=== PATIENT | female | born 1940 | race Caucasian/White ===

== ENCOUNTER 2024-01-05 23:00 | Inpatient (IN) | payer MEDICARE, OTHER, SELFPAY ==
[2024-01-05 17:23] VITALS: BP 99/52
[2024-01-05 17:44] LABS: % Basophils 0.5 % (0-2); % Eosinophils 1.6 % (0-6); % Immature Granulocytes 0.4 % (0-0.5); % Lymphocytes 6.5 % (20.5-51.1); Absolute Eosinophils 0.1 10^3/uL (0-0.7); Absolute Lymphocytes 0.5 10^3/uL (1.2-3.4); Absolute Monocytes 0.6 10^3/uL (0.1-0.6); Absolute Neutrophils 6.2 10^3/uL (1.4-6.5); Hematocrit 28.5 % (37.0-47.0); Hemoglobin 9.3 g/dL (12.0-16.0); Mean Corp Hgb Conc. 32.6 g/dL (33.0-37.0); Mean Corpuscular Hgb 28.4 pg (27.0-31.0); Mean Corpuscular Volume 87.2 fL (81.0-99.0); Mean Platelet Volume 10.5 fL (7.4-10.4); Nucleated Red Blood Cells % 0 %; Platelet Count 220 10^3/uL (130-400); Red Blood Cell Count 3.27 10^6/uL (4.20-5.40); Red Cell Dist. Width 15.1 % (11.5-14.5); White Blood Cell Count 7.5 10^3/uL (4.8-10.8)
[2024-01-05 17:57] LABS: ALT (SGPT) 10 U/L (0-35); AST (SGOT) 28 U/L (14-36); Alkaline Phosphatase 53 U/L (38-126); Blood Urea Nitrogen 36 mg/dl (7-17); Carbon Dioxide 22 mmol/L (22-30); Glucose 127 mg/dl (70-99); Lipase 235 U/L (23-300); Total Bilirubin 0.4 mg/dl (0.2-1.3); Total Protein 6.8 g/dl (6.3-8.2); eGFR 40.55
[2024-01-05 18:11] LABS: Chloride 97 mmol/L (98-107); Potassium 4.5 mmol/L (3.5-5.1); Sodium 129 mmol/L (135-145)
[2024-01-05 19:42] VITALS: BP 170/59
[2024-01-05 20:00] VITALS: BP 153/66
[2024-01-05 21:00] VITALS: BP 126/61
--- NOTE | 2024-01-05 21:24 | ED.GENMED ---
History of Present Illness
General
Chief Complaint: Abdominal Symptoms
Source: patient and family (son)
Time Seen by Provider: 01/05/24 19:44
Travel History
Have you had any contact with someone who has COVID-19?: No
Do you have any symptoms of coronavirus? Fever > 100 degrees, chills, cough, shortness of breath, sore throat, loss of taste or smell, muscle aches, or headache?: No
History of Present Illness
History of Present Illness:
83-year-old female presents to the emergency room complaining of increased belching, vomiting her lunch today. Patient has a significant history of esophageal food impaction due to hiatal hernia and paraesophageal hernia. Patient has had 2
hospitalizations for this requiring extensive clearing of the esophagus. After her last hospitalization the patient has been following a pur�ed diet. Family states she follows the pur�ed diet. However the symptoms she is experiencing today are
identical to what she is experienced when she has developed food impactions in the past. She is not regurgitating secretions. She has tolerated liquids.
Past History
Past History
ED Past Medical History: Cancer, HTN, Hypercholesterolemia, Valvular disease (Aortic valve replacement due to aortic stenosis), Hypothyroidism and Other (Paraesophageal hernia)
ED Past Surgical History: Cardiac (CABG), Gynecological (Hysterectomy 2002) and Orthopedic (Lumbar laminectomy, thoracic surgery)
Patient has exhibited threatening behavior?: No
PSI?: No
Social History
Tobacco: Non-smoker
Alcohol: None
Drug: None
Personal:
Living: with family
Employment: Retired
Family History
Family History: Other (Noncontributory)
Phy Exam
Physical Exam
Physical Exam:
General: Awake, Alert, Oriented X3. No acute distress.
Vitals: unremarkable
Head: Atraumatic
Eyes: Pupils equal, EOMI
Throat: Airway intact, no exudates
Neck: Trachea midline
Lungs: Clear and equal b/l
Heart: Regular rate, no murmurs
Abd: Soft, Nontender, No pulsatile mass
Neuro: Nonfocal
Skin: Warm, dry, no rash
Extremities: pulses equal b/l, no edema
Course
Orders/Labs/Results
Orders:
Orders
01/05/24 17:29
EKG [Electrocardiogram (*1)] Urgent
Reason for Study: Abdominal Pain
EKG- Treatment ONCE
01/05/24 17:35
CBC/With Diff [Complete Blood Count/With Diff] Urgent
CMP [Comprehensive Metabolic Panel] Urgent
Lipase Urgent
01/05/24 22:10
Admit/Transfer Patient As Directed
Co-Sign Provider:
Level of Care: Inpatient admission
Assign to:: Medical/Surgical
Physician / Group: Ciro
Diagnosis: Odynophagia, Hyponatremia
Reason for Hospitalization: Odynophagia, Hyponatremia
Expected length of stay greater than two midnights?: Yes
ELOS- Estimated Length of Stay in days: 3
I certify the patient meets the requirements for IP care: Yes
01/05/24 22:22
Code Status As Directed
Resuscitation Status: Do not resuscitate
Reached after discussion with pt or family/Healthcare POA: Yes
01/05/24 22:24
DNR Bracelet Application ONCE
01/05/24 22:26
Urine Osmolality Random [Osmolality, Random Urine] Urgent
Date Specimen was Collected: 01/05/24
Time Specimen was Collected: 23:47
Urine Sodium Urgent
Date Specimen was Collected: 01/05/24
Time Specimen was Collected: 23:47
Abnormal Lab Results
01/05/24
17:35
RBC 3.27 L 10^6/uL
(4.20-5.40)
Hgb 9.3 L g/dL
(12.0-16.0)
Hct 28.5 L %
(37.0-47.0)
MCHC 32.6 L g/dL
(33.0-37.0)
RDW 15.1 H %
(11.5-14.5)
MPV 10.5 H fL
(7.4-10.4)
Absolute Lymphs (auto) 0.5 L 10^3/uL
(1.2-3.4)
Neutrophils % 83.0 H %
(42.2-75.2)
Lymphocytes % 6.5 L %
(20.5-51.1)
Sodium 129 L mmol/L
(135-145)
Chloride 97 L mmol/L
(98-107)
BUN 36 H mg/dl
(7-17)
Creatinine 1.3 H mg/dL
(0.6-1.0)
Glucose 127 H mg/dl
(70-99)
01/05/24 17:35
01/05/24 17:35
Vital Signs
Initial and Last Documented VS:
Initial Vital Signs
Temp Pulse Resp BP Pulse Ox
99.0 F 57 16 99/52 98
01/05/24 17:23 01/05/24 17:23 01/05/24 17:23 01/05/24 17:23 01/05/24 17:23
Last Documented Vital Signs
Temp Pulse Resp BP Pulse Ox
99.0 F 55 12 127/56 94
01/05/24 17:23 01/05/24 23:45 01/05/24 23:45 01/05/24 23:00 01/05/24 23:45
MDM/Problems Addressed
Differential Diagnosis Includes:
Partial esophageal food impaction, GERD, gastritis
MDM/Problems Addressed:
In reviewing the notes of the patient's previous 2 hospitalizations she has had very extensive impactions despite at times tolerating some liquids and tolerating her secretions. I did discuss the patient's presentation with GI on-call. They
recommend hospitalization and they will evaluate the patient in the morning.
*Pulse Oximetry
Patient hypoxic: no
*EKG
Interpreted by ED Provider?: Yes
Heart Rate: 59
Rate: bradycardiac
Rhythm: sinus
QRS Pattern: left vent hypertrophy
Ischemia: no ischemia
*Addiction Nurse Interpretation
Rate: bradycardiac
Rhythm: sinus
*Critical Care Note
Total Time (30-74mins, 75-104mins- exclusive of procedures): Not Applicable
Data Reviewed
Review of Other/Old Records Reveals: Operative Reports (Endoscopy reports) and Discharge Summary
Patient Management
Social determinants of health affecting care: Living situation
ED Attending Note
-
Portions of this chart may have been created with voice recognition software.� Occasional wrong word or��sound alike� substitutions may have occurred due to the inherent limitations of voice recognition software.
Discharge Plan
Departure
Patient Disposition: Admit
Date of Disposition: 01/05/24
Time of Disposition: 21:24
Admit to: Med/Surg
Presentation/result/management discussed w/ accepting MD/DO: Hospitalist
Discharge Problem:
Dysphagia
Interventions
Interventions:
*Risk Screen - Suicide Last Done: 01/05/24 17:23
*General Assessment Last Done: 01/05/24 17:23
*Neglect/Abuse Screening Last Done: 01/05/24 21:55
ED- Fall Risk Assessment Last Done: 01/05/24 21:55
*ED COVID-19 Vaccine History Last Done: 01/05/24 17:23
RV-Ooihsz-Aqcqjjlzxg Assessment Last Done: 01/05/24 21:55
[2024-01-05 21:55] VITALS: BMI 22.7
[2024-01-05 22:00] VITALS: BP 160/63
--- NOTE | 2024-01-05 22:26 | HPS.HSE ---
Family Physician
-
Family Physician: Zach Goddard
Chief Complaint
-
Pain with swallowing
History of Present Illness
Patient is an 83y F with PMH significant for paraesophageal hernia, odynophagia, esophageal candidiasis, ASCVD and chronic pain syndrome who presents to ED complaining of pain with swallowing and N/V. Patient has prior history of pain with
swallowing, dysphagia and recurrent food impactions. She was last admitted here for this issue in 05/2023. Patient is maintained on a pureed diet and has generally been doing well. About two weeks ago, she began to have pain with swallowing food
or liquids. She describes this as 'angina' or a 'tightness' in the chest that resolves after several minutes, but then recurs with any further eating / drinking.
Patient did not alert anyone to her symptoms until today when she had an episode of N/V or regurgitation after lunch today.
Patient denies any abdominal pain, fevers / chills, black or bloody stools.
She complains of overactive bladder and - as a result - will avoid drinking fluids at times to minimize need to urinate.
Patient was started on new medication (Gemtesa) about 10 days ago - but swallow issues had already started prior to this change.
Patient had previously considered paraesophageal hernia repair as means to improve swallow function / prevent future episodes of dysphagia / food impaction; however, she ultimately decided against this.
Son notes that she is functionally in much better shape now than she was one year ago and she may reconsider.
Medical History
Past Medical History
Past Medical History: Reports Other
Additional Past Medical History:
ASCVD
Hypertension
Dyslipidemia
Chronic HFpEF
Severe aortic stenosis
CKD stage IV
Chronic Dysphagia / Odynophagia
Paraesophageal Hernia
Anemia of chronic disease
Chronic pain syndrome secondary to spinal stenosis with morphine pump
Recurrent urinary tract infection
GERD
? Ulcerative colitis
OAB
Hypothyroidism
Depression
Past Surgical History: Reports Other
Additional Past Surgical History:
CABG x 3
Bioprosthetic AVR
Morphine pump
RAMANA
Lumbar laminectomy
Thoracic spine surgery
Social History
Tobacco: Non-smoker
Alcohol: None
Drug: None
Living: Assisted
Family History
Family History: Not pertinent
Allergies / Home Medications
Allergies reflects when Allergies were last updated in [facility].
Home Medications with original date entered in [facility]
Allergy/Medication List:
Allergies
Allergy/AdvReac Type Severity Reaction Status Date / Time
levofloxacin Allergy swelling Verified 01/05/24 17:23
and
itching at
site
Metronidazole HCl Allergy Swelling, Verified 01/05/24 17:23
[From Flagyl] itching
oxycodone Allergy Confusion Verified 01/05/24 17:23
Home Medications
ezetimibe 10 mg tablet 10 mg PO HS High cholesterol 03/16/09
jxfhimtbpgu-sfegxgtdm-rit C-Mn 750 mg-600 mg-55 mg-5 mg tablet 1 tab PO BID Supplement 03/16/09
sertraline 50 mg tablet 50 mg PO HS Mental Health/Anxiety 03/16/09
omega 6-ovl-gyi-fish oil 250 mg-500 mg-1,000 mg capsule 1 cap PO DAILY High cholesterol 09/21/13
ascorbic acid (vitamin C) 500 mg tablet (Vitamin C) 500 mg PO DAILY Supplement 05/29/16
aspirin 81 mg tablet,delayed release 81 mg PO DAILY Blood clot prevention/tx 05/29/16
Morphine Pump 0 mg INJ Q1H Pain 10/15/18
nitroglycerin 0.4 mg sublingual tablet 0.4 mg sublingual [id number] PRN chest pain 10/15/18
rosuvastatin 5 mg tablet 5 mg PO HS High cholesterol 10/15/18
B-complex with vitamin C 1 cap PO DAILY Supplement 10/01/20
isosorbide mononitrate 60 mg tablet,extended release 24 hr 60 mg PO DAILY ANGINA 10/01/20
vit C 250 mg-vit E 90 mg-zinc 40 mg-copper 1 so-lekqvd-bhgpsp capsule (PreserVision AREDS-2) 1 cap PO BID Eye condition 10/01/20
mesalamine 1.2 gram tablet,delayed release (Lialda) 2.4 g PO DAILY Gastrointestinal issue 11/19/20
alendronate 70 mg tablet 70 mg PO SA oSTEOPEROSIS 09/22/22
pantoprazole 40 mg tablet,delayed release 40 mg PO DAILY Gastrointestinal Issue 04/11/23
acetaminophen 325 mg tablet 650 mg PO Q6HPRN PRN mild pain/fever 06/01/23
carvedilol 6.25 mg tablet 3.125 mg PO BID #0 tabs 06/05/23
polyethylene glycol 3350 17 gram oral powder packet (HealthyLax) 17 g PO DAILY #0 ea 06/05/23
tamsulosin 0.4 mg capsule 0.4 mg PO DAILY #0 caps 06/05/23
L. crispatus, gasseri, jensenii, rhamnosus 5 billion cell capsule (AZO Complete Feminine Balance) 2 cap PO DAILY 01/05/24
amlodipine 10 mg tablet (Norvasc) 10 mg PO DAILY 01/05/24
bisacodyl 10 mg rectal suppository (Dulcolax (bisacodyl)) 10 mg NC Q8HPRN PRN if no bm aftr mom 01/05/24
calcium carbonate 200 mg calcium (500 mg) chewable tablet (Tums) 200 mg PO Q6HPRN PRN gerd 01/05/24
camphor-menthol 0.2 %-3.5 % topical gel 1 applic topical TID shoulder 01/05/24
carboxymethylcellulose 0.5 %-glycerin 0.9 % eye drops (Refresh Optive) 1 drp BOTH EYES BID 01/05/24
cholecalciferol (vitamin D3) 25 mcg (1,000 unit) tablet (Vitamin D3) 25 mcg PO DAILY 01/05/24
darifenacin 15 mg tablet,extended release 24 hr 15 mg PO DAILY 01/05/24
famotidine 20 mg tablet (Pepcid) 10 mg PO DAILY 01/05/24
fenofibrate 54 mg tablet 54 mg PO DAILY 01/05/24
furosemide 20 mg tablet (Lasix) 20 mg PO DAILY 01/05/24
levothyroxine 75 mcg tablet (Synthroid) 75 mcg PO DAILY 01/05/24
magnesium hydroxide 400 mg/5 mL oral suspension (Milk of Magnesia) 2,400 mg PO [id number] PRN constipation 01/05/24
melatonin 3 mg tablet 6 mg PO HSPRN PRN sleep 01/05/24
sennosides 8.6 mg tablet (senna) 17.2 mg PO DAILY 01/05/24
vibegron 75 mg tablet (Gemtesa) 75 mg PO DAILY 01/05/24
Review of Systems
-
History Source: Patient
A 12 point ROS was completed and negative except as noted: Yes
Constitutional: Reports Fatigue; Denies Fever or Chills
EENT: Denies Sore Throat
Respiratory: Denies Cough or Trouble Breathing
Cardiac: Reports Chest Pain; Denies Palpitations
Abdomen/GI: Reports Nausea, Vomiting and Anorexia; Denies Abdominal Pain, Diarrhea or Constipated
: Reports Frequency and Urgency; Denies Dysuria or Flank Pain
Neurological: Denies Dizzy or Headache
Psych: Denies Depression or Anxiety
Physical Exam
Vital Signs
Vital Signs
Temp Pulse Resp BP Pulse Ox
99.0 F 52 11 153/66 97
01/05/24 17:23 01/05/24 20:30 01/05/24 20:30 01/05/24 20:00 01/05/24 20:30
Physical Exam
General: Other (Chronically ill-appearing 83y F.)
HEENT: PERRLA and Other (Dry MM. )
Respiratory: Clear; No Wheezes, Rales or Rhonchi
Cardiac: S1/S2, Regular Rhythm and Murmur (III/ ENE)
GI: Other (Softly distended. Pos BS. No focal tenderness, rebound or guarding. Morphine pump in the RLQ.)
Musculoskeletal: No Clubbing, No Cyanosis and Other (1+ pitting edema b/l ankles.)
Neuro: AO x 3
Laboratory Results
-
01/05/24 17:35
01/05/24 17:35
Laboratory Results
Total Bilirubin 0.4 mg/dl (0.2-1.3) 01/05/24 17:35
AST 28 U/L (14-36) 01/05/24 17:35
ALT 10 U/L (0-35) 01/05/24 17:35
Alkaline Phosphatase 53 U/L (38-126) 01/05/24 17:35
Lipase 235 U/L (23-300) 01/05/24 17:35
Impression/Plan
-
A/P: Patient is an 83y F with PMH significant for paraesophageal hernia, chronic pain syndrome, ASCVD and CKD who presents to ED complaining of pain with swallowing x 2 weeks and N/V x 1 today.
Odynophagia
Paraesophageal Hernia
GERD
N/V v Regurgitation
- Admit for further evaluation and treatment.
- NPO for now. Patient takes pureed diet at baseline.
- IV PPI.
- GI evaluation in AM / possible EGD for further evaluation.
- Patient previously discussed possibility of paraesophageal hernia repair - may wish to reconsider.
Hyponatremia
- Na = 129 today. Patient appears slightly overloaded by exam with ankle edema - but history of pain with swallowing and OAB leading to significant decrease in fluid intake would argue against volume overload.
- Hold Lasix for now.
- IVF overnight.
- Check urinary studies.
- Follow for changes in Na level and consider Nephrology evaluation if no improvement.
ASCVD
- Stable. Current 'angina' likely GI in origin.
- EKG in unremarkable.
- Continue ASA, carvedilol, etc.
- Follow for any changes.
Aortic Stenosis s/p Bioprosthetic AVR
Chronic HFpEF
- Stable. Holding Lasix as noted above.
- Follow I/Os, daily weights and dose diuretic as needed until PO intake is restored.
Chronic Pain Syndrome
Chronic Opioid Dependence
- Patient is maintained on morphine pump which is currently active.
- Continue pump at home settings.
- PT / OT evaluations for mobility.
- Follow for any changes.
Hypothyroidism
- Continue current T4 replacement.
DVT Prophylaxis: Subcut Heparin
Code Status: DNR
[2024-01-05 23:00] VITALS: BP 127/56
[2024-01-06] VITALS (13 sets, daily range): BP systolic 96–163; BP diastolic 48–62; PULSE 57; O2SAT 97; BMI 20.3; BMI 19.3
--- NOTE | 2024-01-06 00:53 | EDRN ---
Patient sleeping, sent lab tests added, patient asking for another blanket, provided and turned down lights, call jiang in reach.
[2024-01-06] MEDS: NSS 1000 IV ×2 (00:56→13:07)
[2024-01-06 01:09] LABS: Osmolality Urine 293 mOsm/kg (300-900)
[2024-01-06 01:54] LABS: Urine Sodium 25 mmol/L (30-90)
[2024-01-06 02:34] LABS: TSH Reflex To Free T4 2.66 uIU/ml (0.47-4.68)
--- NOTE | 2024-01-06 04:41 | EDRN ---
Patient sleeping at this time, VSS
[2024-01-06 06:14] LABS: Hematocrit 25.6 % (37.0-47.0); Hemoglobin 8.6 g/dL (12.0-16.0); Mean Corp Hgb Conc. 33.6 g/dL (33.0-37.0); Mean Corpuscular Hgb 28.6 pg (27.0-31.0); Mean Platelet Volume 10.7 fL (7.4-10.4); Platelet Count 213 10^3/uL (130-400); Red Blood Cell Count 3.01 10^6/uL (4.20-5.40); Red Cell Dist. Width 14.9 % (11.5-14.5)
[2024-01-06 06:34] LABS: Blood Urea Nitrogen 31 mg/dl (7-17); Carbon Dioxide 25 mmol/L (22-30); Chloride 105 mmol/L (98-107); Estimated Creatinine Clearance 33 ml/min; Glucose 69 mg/dl (70-99); Potassium 4.2 mmol/L (3.5-5.1); Sodium 133 mmol/L (135-145); eGFR 49.55
--- NOTE | 2024-01-06 07:10 | EDRN ---
Report to Alla RN while going over morning blood work, blood glucose was 69, melissa texted hospitalist for further orders
--- NOTE | 2024-01-06 07:48 | CON.GI ---
Addendum entered and electronically signed by Jes Bone MD 01/06/24 11:41:
I saw and examined the patient.
The RIVET HOLE PUNCHER's note was reviewed and I agree with the note.
Comment: This is a 83-year-old female who has a history of medium to large paraesophageal hiatal hernia with history of food impactions in the past most recently had endoscopy in April and May 2023 with large amount of retained food removed from the
esophagus and subsequently was referred to surgery to consider repair of her hiatal hernia but patient had opted to hold off on it and actually had been doing pretty well on pur�ed diet that was recommended by speech she also has a history of
tortuous and presbyesophagus. She has been having recurrent symptoms of dysphagia with regurgitation for the past 1 to 2 weeks and presented to the emergency room yesterday but currently is able to swallow secretions and has not had any nausea or
vomiting.
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 She has been
having recently increasing symptoms of dysphagia with the pur�ed diet also, will schedule upper endoscopy to rule out recurrent food bolus impaction. Continue pantoprazole and Pepcid if has repeated episodes on pureed diet may need to revisit
repair of her hiatal hernia she has seen general surgery and she had opted to hold off on surgery in the past. I encouraged her to eat small frequent meals and also follow reflux precautions
Original Note:
Consultation
-
Date/Time Consultation Requested: 01/06/24 @00:39
Date/Time Consultation Performed: 01/06/24 @ 08:15
Requesting Provider: Dr. Tanner
Performing Provider: NOLVIA Christiansen; Dr. Jes Bone
Reason for Consultation: dysphagia
Medical History
Chief Complaint / HPI
Chief Complaint: pain with swallowing
History of Present Illness:
The pt is an 83 yo female with a PMH significant for hypertension, hyperlipidemia, CAD status post CABG on aspirin, aortic stenosis status post bovine aortic valve replacement in 2011 and TAVR in November 2022, chronic pain syndrome with morphine
pump, hypothyroidism, ulcerative colitis on Lialda, paraesophageal hernia, Esophageal candidiasis, dysphagia, history of food impaction, who presented to the emergency room with complaints of painful swallowing. We are being asked to evaluate for
the presenting symptoms. Upon review of prior records, the patient was seen last year in April and May with complaints of dysphagia. She was noted to have a food impaction in April with inability to get liquids down. She underwent an endoscopy
which showed a large amount of food seen in the upper third of the esophagus middle third, and lower third of the esophagus and food was removed with multiple passes. She also underwent an esophagram during that admission which showed a large
paraesophageal hernia and was advised on follow-up with surgery, which was ultimately deferred at that time. She presented again in May with recurrent dysphagia, vomiting, and regurgitation. It was noted her symptoms had started after having
COVID and a course of Paxlovid. She ultimately underwent an endoscopy which showed a food throughout the esophagus and multiple plaques in the upper third of the esophagus with a large paraesophageal hernia. The endoscopy did take a total of 2
hours in time. She was treated for esophageal candidiasis at that time. She was again advised to follow-up with general surgery for discussion on her paraesophageal hernia and surgical options. She was discharged on a dysphagia 1/pur�ed diet. Today
she reports she has been having ongoing odynophagia for the past 1-1/2 to 2 weeks. She notes that she has been on a pur�ed diet and thin liquids as directed last year and has not had any difficulty with swallowing, but notes that she has had
progressively more painful swallowing. She notes that she was not having any overt nausea or vomiting but did have to regurgitate food yesterday after her lunch. This is similar to when she had prior food impactions in the past. She denies any
intolerance of her secretions and is swallowing normally. She denies any abdominal pain, chest pain, shortness of breath, fevers, or chills. She reports she is moving her bowels every few days which is baseline. She denies any diarrhea, melena,
or hematochezia. She denies any hematemesis. She does take aspirin, and for her son she has been off Plavix since September. Per her med list she is on daily PPI. She denies any recent antibiotics, steroid use, or NSAID use. Prior EGD and
colonoscopy as noted below. Routine labs on admission showed WBC 7.5, hgb 9.3, Plt 220,000, Na 129, K 4.5, BUN 36, Cr 1.3, normal LFT's/lipase. She was placed on PPI, made NPO, and admitted for further evaluation by GI. She is currently resting in
the stretcher no acute distress.
Past Medical History
Past Medical History: CAD (Status post CABG), CHF, GERD, HTN, Hypercholesterolemia, Hypothyroidism, Valvular Disease (Aortic stenosis status post bovine aortic valve replacement in 2011 and TAVR are in November 2022), Psychiatric (Anxiety/depression)
and Other (Chronic pain syndrome with morphine pump, ulcerative colitis on Lialda, osteoporosis, large paraesophageal hernia, history of esophageal candidiasis, CKD, chronic dysphagia/odynophagia, chronic anemia)
Past Surgical History: Cardiac (CABGx3 vessels, bioprosthetic AVR, TAVR), Gynecological (Hysterectomy) and Orthopedic (Lumbar laminectomy, thoracic spine surgery)
Social History
Tobacco: Non-Smoker
Alcohol: None
Drug: None
Living: Mcfp
Family History
Family History: Reviewed & Not Pertinent
Allergies / Home Medications
Allergy/AdvReac Type Severity Reaction Status Date / Time
levofloxacin Allergy swelling Verified 01/05/24 17:23
and
itching at
site
Metronidazole HCl Allergy Swelling, Verified 01/05/24 17:23
[From Flagyl] itching
oxycodone Allergy Confusion Verified 01/05/24 17:23
Medication Instructions Recorded
ezetimibe 10 mg tablet 10 mg PO HS High cholesterol 03/16/09
qygprtaekwi-[id number]-abu C-Mn 750 1 tab PO BID Supplement 03/16/09
mg-600 mg-55 mg-5 mg tablet
sertraline 50 mg tablet 50 mg PO HS Mental Health/Anxiety 03/16/09
omega 8-yre-zhn-fish oil 250 1 cap PO DAILY High cholesterol 09/21/13
mg-500 mg-1,000 mg capsule
ascorbic acid (vitamin C) 500 mg 500 mg PO DAILY Supplement 05/29/16
tablet (Vitamin C)
aspirin 81 mg tablet,delayed 81 mg PO DAILY Blood clot 05/29/16
release prevention/tx
Morphine Pump 0 mg INJ Q1H Pain 10/15/18
nitroglycerin 0.4 mg sublingual 0.4 mg sublingual [id number] PRN 10/15/18
tablet chest pain
rosuvastatin 5 mg tablet 5 mg PO HS High cholesterol 10/15/18
B-complex with vitamin C 1 cap PO DAILY Supplement 10/01/20
isosorbide mononitrate 60 mg 60 mg PO DAILY ANGINA 10/01/20
tablet,extended release 24 hr
vit C 250 mg-vit E 90 mg-zinc 40 1 cap PO BID Eye condition 10/01/20
mg-copper 1 [id number]
capsule (PreserVision AREDS-2)
mesalamine 1.2 gram tablet,delayed 2.4 g PO DAILY Gastrointestinal 11/19/20
release (Lialda) issue
alendronate 70 mg tablet 70 mg PO SA oSTEOPEROSIS 09/22/22
pantoprazole 40 mg tablet,delayed 40 mg PO DAILY Gastrointestinal 04/11/23
release Issue
acetaminophen 325 mg tablet 650 mg PO Q6HPRN PRN mild 06/01/23
pain/fever
carvedilol 6.25 mg tablet 3.125 mg PO BID #0 tabs 06/05/23
polyethylene glycol 3350 17 gram 17 g PO DAILY #0 ea 06/05/23
oral powder packet (HealthyLax)
tamsulosin 0.4 mg capsule 0.4 mg PO DAILY #0 caps 06/05/23
L. crispatus, gasseri, jensenii, 2 cap PO DAILY 01/05/24
rhamnosus 5 billion cell capsule
(AZO Complete Feminine Balance)
amlodipine 10 mg tablet (Norvasc) 10 mg PO DAILY 01/05/24
bisacodyl 10 mg rectal suppository 10 mg MO Q8HPRN PRN if no bm aftr 01/05/24
(Dulcolax (bisacodyl)) mom
calcium carbonate 200 mg calcium 200 mg PO Q6HPRN PRN gerd 01/05/24
(500 mg) chewable tablet (Tums)
camphor-menthol 0.2 %-3.5 % 1 applic topical TID shoulder 01/05/24
topical gel
carboxymethylcellulose 0.5 1 drp BOTH EYES BID 01/05/24
%-glycerin 0.9 % eye drops
(Refresh Optive)
cholecalciferol (vitamin D3) 25 25 mcg PO DAILY 01/05/24
mcg (1,000 unit) tablet (Vitamin
D3)
darifenacin 15 mg tablet,extended 15 mg PO DAILY 01/05/24
release 24 hr
famotidine 20 mg tablet (Pepcid) 10 mg PO DAILY 01/05/24
fenofibrate 54 mg tablet 54 mg PO DAILY 01/05/24
furosemide 20 mg tablet (Lasix) 20 mg PO DAILY 01/05/24
levothyroxine 75 mcg tablet 75 mcg PO DAILY 01/05/24
(Synthroid)
magnesium hydroxide 400 mg/5 mL 2,400 mg PO [id number] PRN 01/05/24
oral suspension (Milk of Magnesia) constipation
melatonin 3 mg tablet 6 mg PO HSPRN PRN sleep 01/05/24
sennosides 8.6 mg tablet (senna) 17.2 mg PO DAILY 01/05/24
vibegron 75 mg tablet (Gemtesa) 75 mg PO DAILY 01/05/24
Review of Systems
-
History Source: Patient
Constitutional: Reports No Symptoms
EENT: Reports No Symptoms
Respiratory: Reports No Symptoms
Cardiac: Reports No Symptoms
Abdomen/GI: Reports Vomiting, Constipated and Other (Odynophagia)
: Reports No Symptoms
Musculoskeletal: Reports No Symptoms
Skin: Reports No Symptoms
Neurological: Reports No Symptoms
Vital Signs
Temp Pulse Resp BP Pulse Ox
99.0 F 52 12 147/51 98
01/05/24 17:23 01/06/24 06:45 01/06/24 06:45 01/06/24 06:00 01/06/24 06:45
Physical Exam
Exam
General: No Apparent Distress, Comfortable and Other (Elderly appearing female in no acute distress)
HEENT: Normocephalic, Anicteric and Atraumatic
Respiratory: Clear
Cardiac: S1/S2 and Regular Rhythm
Breast: Deferred by me
GI: Soft, Non Tender, Non Distended, Normal Bowel Sounds and Other (Morphine pump device palpated to the right upper quadrant)
Rectal: Deferred by Provider
Musculoskeletal: Other (Trace lower extremity edema)
Skin: Warm and Dry
Neuro: Awake, Alert and Oriented
Psych: Calm
Results
WBC 5.0 10^3/uL (4.8-10.8) 01/06/24 05:48
Hgb 8.6 g/dL (12.0-16.0) L 01/06/24 05:48
Hct 25.6 % (37.0-47.0) L 01/06/24 05:48
MCV 85.0 fL (81.0-99.0) 01/06/24 05:48
Plt Count 213 10^3/uL (130-400) 01/06/24 05:48
Absolute Neuts (auto) 6.2 10^3/uL (1.4-6.5) 01/05/24 17:35
Sodium 133 mmol/L (135-145) L 01/06/24 05:48
Potassium 4.2 mmol/L (3.5-5.1) 01/06/24 05:48
Chloride 105 mmol/L (98-107) 01/06/24 05:48
Carbon Dioxide 25 mmol/L (22-30) 01/06/24 05:48
BUN 31 mg/dl (7-17) H 01/06/24 05:48
Creatinine 1.1 mg/dL (0.6-1.0) H 01/06/24 05:48
Calcium 9.0 mg/dl (8.4-10.2) 01/06/24 05:48
Total Bilirubin 0.4 mg/dl (0.2-1.3) 01/05/24 17:35
AST 28 U/L (14-36) 01/05/24 17:35
ALT 10 U/L (0-35) 01/05/24 17:35
Alkaline Phosphatase 53 U/L (38-126) 01/05/24 17:35
Lipase 235 U/L (23-300) 01/05/24 17:35
Prior GI Procedures:
EGD: 06/02/23 Dr. Brannon: Food in the esophagus. Removal was successful. Multiple plaques in the upper third of the esophagus. Cells for cytology obtained. Large paraesophageal hernia. Normal examined duodenum.
04/10/2023 Dr. Bone: - large amount of Food column in the upper third of the esophagus, in the middle third of the esophagus and in the lower third of the esophagus. food removed with multiple passes with chacko net and alligator forceps.
Medium-sized paraesophageal hiatal hernia. Normal examined duodenum. No specimens collected.
02/24/2019 Dr. Bergeron: Tortuous esophagus. Medium-sized paraesophageal hernia. Non-bleeding gastric ulcer with no stigmata of bleeding. Biopsied. A single lesion diagnostic of aberrant pancreas was found in the stomach. Biopsied. Gastritis. Biopsied.
Normal examined duodenum. Biopsied. Path showing chronic gastritis, +intestinal metaplasia of the stomach, negative for celiac, H pylori.
01/06/2019 Dr. Walp: �Tortuous esophagus. Medium-sized paraesophageal hernia. Non-bleeding gastric ulcers inside the hernia with no stigmata of bleeding. Biopsied. Non-bleeding gastric ulcer with no stigmata of bleeding adjacent to likely pancreatic
rest tissue. Biopsied. A single lesion consistent with aberrant pancreas was found in the antrum. Biopsied. Gastric mucosal atrophy. Biopsied. A single duodenal polyp. Resected and retrieved. Biopsies were taken with a cold forceps for evaluation of
celiac disease. Path showing chronic inactive gastritis, negative for H pylori, celiac.
Colonoscopy: 01/06/2019, Dr. Bergeron: Perianal skin tags found on perianal exam. Non-bleeding external and internal hemorrhoids. Diverticulosis in the left colon. Scattered moderate inflammation was found in the rectum, in the sigmoid colon and in the
descending colon secondary to left-sided colitis. Biopsied. Worse from 25-40cm from the anal verge. Decreased mucosa vascular pattern in the entire examined colon. Biopsied. The examined portion of the ileum was normal. Biopsied.
04/14/2023 [facility]: IMPRESSION: The study is technically limited by the patient's physical condition. There is a large paraesophageal hernia as noted previously. There is no evidence of obstruction. It is difficult to evaluate for reflux as there is
incomplete clearing of the esophagus. No definite reflux was identified fluoroscopically.
Assessment / Plan
-
The pt is an 83 yo female with a PMH significant for hypertension, hyperlipidemia, CAD status post CABG on aspirin, aortic stenosis status post bovine aortic valve replacement in 2011 and TAVR in November 2022, chronic pain syndrome with morphine
pump, hypothyroidism, ulcerative colitis on Lialda, paraesophageal hernia, Esophageal candidiasis, dysphagia, history of food impaction, who presented to the emergency room with complaints of painful swallowing. We are being asked to evaluate for
the presenting symptoms. Notable history of recurrent food impactions in April and May 2023 requiring endoscopic evaluation. She was found to have a large paraesophageal hernia likely contributing to her recurrent symptoms. She now presents with
ongoing odynophagia for the past 1 to 2 weeks without any overt signs of food impaction currently. She notes she did have an episode of regurgitation yesterday but no further episodes. She is tolerating her secretions currently.
Problem list:
-Recurrent odynophagia/dysphagia
-History of large paraesophageal hernia
-History of food impaction
-Constipation
-ulcerative colitis on Lialda
-History of esophageal candidiasis 2022
-Hypokalemia
-Hyponatremia
-CKD
Other pertinent medical history:
-Hypertension
-Hyperlipidemia
-CAD status post CABG on aspirin
-Aortic stenosis status post bioprosthetic valve replacement in 2011, TAVR in 2032
-Hypothyroidism
-Chronic anemia
Recommendations:
-Etiology of current symptoms possibly secondary to esophagitis with large paraesophageal hernia versus recurrent food impaction versus candidiasis versus esophageal ulcer versus other.
-Currently without any signs of ongoing food impaction, tolerating secretions.
-Will proceed with EGD today with her history to rule out any acute abnormalities. The patient is agreeable to this plan.
-I did advise her that she will need reevaluation with general surgery to discuss possible surgical intervention for her large paraesophageal hernia as her symptoms likely will continue to happen without intervention. She is also agreeable to this,
which can be arranged outpatient.
-I did also speak to her son Soy regarding the plan with whom the patient asked me to speak to. It is noted that the patient's daughter is her POA and should be called for further information/consents.
-Continue PPI twice daily for now and will need daily indefinitely
-N.p.o. for EGD
-Discussed with Dr. Daigle
-Replete electrolytes and monitor sodium levels, defer to hospitalist
-Will follow
Data Reviewed
-
Old Records: Reviewed
-
-
Thank you for consultation and allowing me to participate in the patient's care. Please call the director occupational GI physician during the after hours with any questions or concerns.
--- NOTE | 2024-01-06 08:37 | W.PN.HOSP.TC ---
Today's Communication/Plan
-
NPO/IVF
await GI
Assessment / Plan
Assessment / Plan
pt is an 83 year old female
Odynophagia (describes as 'angina') with eating with recurrent n/v--has Paraesophageal Hernia and GERD--at baseline pureed diet--await GI input--cont NPO/IVF--likely need for EGD--unclear how she stands on surgical repair (has seen Dr. Zamora
reportedly)
Hyponatremia--sodium 129--suspect due to poor PO intake--cont IVF--lasix on hold (has chronic LE edema)--follow--if needed, consult renal
�
ASCVD�- Stable.� Current 'angina' likely GI in origin�- EKG in ED unremarkable- Continue ASA, carvedilol, etc.
�
Aortic Stenosis s/p Bioprosthetic AVR/Chronic HFpEF�- Stable.� Holding Lasix as noted above- Follow I/Os, daily weights and dose diuretic as needed until PO intake is restored.
Chronic Pain Syndrome/Chronic Opioid Dependence--unclear cause-- Patient is maintained on morphine pump which is currently active-- Continue pump at home settings-- PT/OT evaluations for mobility.
Hypothyroidism�- Continue current T4 replacement.
�
DVT Prophylaxis:� Subcutaneous Heparin
Code Status:� DNR
Anticipated Discharge: > 48 hours
Subjective/Interval History
-
Date of Service: January 06, 2024
pt c/o 'angina' with eating--none currently
Objective Data
-
Labs:
Laboratory Results
01/06/24
05:48
WBC 5.0
Hgb 8.6 L
Hct 25.6 L
Plt Count 213
Sodium 133 L
Potassium 4.2
Chloride 105
Carbon Dioxide 25
BUN 31 H
Creatinine 1.1 H
Glucose 69 L
Calcium 9.0
Vital Signs:
max temp for 24 hours
01/05/24
17:23
Temp 99.0 F
Vital Signs
Temp Pulse Resp BP Pulse Ox
99.0 F 52 12 147/51 98
01/05/24 17:23 01/06/24 06:45 01/06/24 06:45 01/06/24 06:00 01/06/24 06:45
I&O
01/05/24 01/06/24 01/07/24
06:59 06:59 06:59
Output Total 800 / 800
Balance -800 / -800
Review of Systems
-
All other systems: Reviewed and negative
Physical Exam
-
General: Well Developed, Well Nourished and No Apparent Distress
HEENT: Normocephalic and Atraumatic; Negative Moist Mucous Membranes (dry)
Respiratory: Clear to Auscultation; Negative Wheezes or Rhonchi
Cardiac: Regular Rhythm, S1/S2 and Murmur
GI: Soft, Nontender, Nondistended, Normal Bowel Sounds and Other (morphine pump RLQ)
Musculoskeletal: No Clubbing and No Cyanosis; Negative No Edema (2+ LE edema)
Neuro: Awake and Alert
--- NOTE | 2024-01-06 08:48 | CM ---
Patient see at bedside with physician. Patient states that she is from [facility] and is LTC there. CM called to Maria Isabel at [facility]. She states that Patient is a LTC resident at the facility and has a bed hold. Patient has MA/MC and patient
indicates that she does plan to return to SNF. Patient has a PCP Dr. Goddard. Plan is for return to SNF when patient medically appropriate. Patient has POA as well as Advanced Directive both name patient daughter Ambar Montoya. CM provided forms to ED
for scanning and updated physician. Patient spoke with CM and requested that patient son be contacted. CM will continue to follow for discharge planning needs.
Plan; return to SNF.
[2024-01-06] MEDS: DEXTROSE 50% SYRINGE 12.5 GRAMS IV (09:41)
[2024-01-06] MEDS: NSS (PRESERVATIVE FREE) 10 ML IV (09:41)
[2024-01-06] MEDS: HEPARIN 5000 UNITS SC ×2 (09:42→20:19)
[2024-01-06] MEDS: PROTONIX IV 40 MG IV (09:42)
[2024-01-06] MEDS: IMDUR (EXTENDED RELEASE) 60 MG PO (13:07)
[2024-01-07] MEDS: NSS 1000 IV (04:17)
[2024-01-07 06:00] VITALS: BMI 19.3
[2024-01-07] MEDS: SYNTHROID 75 MCG PO (06:07)
[2024-01-07 06:18] LABS: Hematocrit 28.4 % (37.0-47.0); Hemoglobin 9.1 g/dL (12.0-16.0); Mean Corpuscular Hgb 28.8 pg (27.0-31.0); Mean Corpuscular Volume 89.9 fL (81.0-99.0); Mean Platelet Volume 10.8 fL (7.4-10.4); Platelet Count 213 10^3/uL (130-400); Red Blood Cell Count 3.16 10^6/uL (4.20-5.40)
[2024-01-07 06:47] LABS: ALT (SGPT) < 10 U/L (0-35); AST (SGOT) 22 U/L (14-36); Albumin 3.1 g/dl (3.5-5.0); Alkaline Phosphatase 53 U/L (38-126); Blood Urea Nitrogen 22 mg/dl (7-17); Carbon Dioxide 27 mmol/L (22-30); Chloride 111 mmol/L (98-107); Estimated Creatinine Clearance 34 ml/min; Glucose 77 mg/dl (70-99); Magnesium 2.2 mg/dl (1.6-2.3); NT-proBNP 1750 pg/ml; Potassium 4.2 mmol/L (3.5-5.1); Sodium 137 mmol/L (135-145); Total Bilirubin 0.3 mg/dl (0.2-1.3); Total Protein 5.7 g/dl (6.3-8.2); eGFR 55.55
[2024-01-07 07:28] VITALS: BP 160/65
[2024-01-07] MEDS: HEPARIN 5000 UNITS SC (08:38)
[2024-01-07] MEDS: IMDUR (EXTENDED RELEASE) 60 MG PO (08:41)
[2024-01-07] MEDS: NSS (PRESERVATIVE FREE) 10 ML IV (08:41)
[2024-01-07] MEDS: PROTONIX IV 40 MG IV (08:41)
--- NOTE | 2024-01-07 10:58 | W.PN.HOSP.TC ---
Today's Communication/Plan
-
d/c to SNF
Assessment / Plan
Assessment / Plan
pt is an 83 year old female
Odynophagia (describes as 'angina') with eating with recurrent n/v--has Paraesophageal Hernia and GERD--at baseline pureed diet--apprec GI input--s/p EGD, no retained food found--unclear how she stands on surgical repair (has seen Dr. Zamora
reportedly)--f/u as outpt
Hyponatremia--sodium 129--suspect due to poor PO intake--cont IVF--lasix on hold (has chronic LE edema)--resolved
�
ASCVD�- Stable.� Current 'angina' likely GI in origin�- EKG in ED unremarkable- Continue ASA, carvedilol, etc.
�
Aortic Stenosis s/p Bioprosthetic AVR/Chronic HFpEF�- Stable.� Holding Lasix as noted above- Follow I/Os, daily weights and dose diuretic as needed until PO intake is restored.
Chronic Pain Syndrome/Chronic Opioid Dependence--unclear cause-- Patient is maintained on morphine pump which is currently active-- Continue pump at home settings-- PT/OT evaluations for mobility.
Hypothyroidism�- Continue current T4 replacement.
�
DVT Prophylaxis:� Subcutaneous Heparin
Code Status:� DNR
Anticipated Discharge: Today
Subjective/Interval History
-
Date of Service: January 07, 2024
pt tolerating her diet
cleared for d/c by GI
Objective Data
-
Labs:
Laboratory Results
01/07/24
05:52
WBC 6.0
Hgb 9.1 L
Hct 28.4 L
Plt Count 213
Sodium 137
Potassium 4.2
Chloride 111 H
Carbon Dioxide 27
BUN 22 H
Creatinine 1.0
Glucose 77
Calcium 9.0
Total Bilirubin 0.3
AST 22
ALT < 10
Alkaline Phosphatase 53
Vital Signs:
max temp for 24 hours
01/06/24
23:00
Temp 98.7 F
Vital Signs
Temp Pulse Resp BP Pulse Ox
98.2 F 58 17 160/65 97
01/07/24 07:28 01/07/24 08:41 01/07/24 07:28 01/07/24 07:28 01/07/24 10:07
I&O
01/06/24 01/07/24 01/08/24
06:59 06:59 06:59
Intake Total 1917
Output Total 800 / 800 1300 / 1300
Balance -800 / -800 618 / 618
Review of Systems
-
All other systems: Reviewed and negative
Physical Exam
-
General: Well Developed, Well Nourished and No Apparent Distress
HEENT: Normocephalic and Atraumatic
Respiratory: Clear to Auscultation; Negative Wheezes or Rhonchi
Cardiac: Regular Rhythm and S1/S2; Negative Murmur
GI: Soft, Nontender, Nondistended and Normal Bowel Sounds
Musculoskeletal: No Clubbing, No Cyanosis and No Edema
Neuro: Awake
Psych: Calm
--- NOTE | 2024-01-07 11:55 | CM ---
Patient seen at bedside, Patient son also spoke with CM and will transport patient home following discharge after 3pm. IMM reviewed with patient and son to sign when he arrives. Please fax to [phone] and call report to [phone]. CM will
continue to follow for discharge planning needs.
Plan; return to snf.
--- NOTE | 2024-01-08 06:51 | W.DCSUMMARY ---
Discharge Summary
Discharge Data
Date of Admission: 01/05/24
Date of Discharge: 01/07/24
-
Pending Results: No
Hospital Course
Primary care physician : Zach Goddard
Principal Discharge diagnosis : Odynophagia, hyponatremia
Chronic Discharge diagnosis : Atherosclerotic cardiovascular disease, aortic stenosis status post bioprosthetic aortic valve replacement, chronic diastolic congestive heart failure without exacerbation, chronic pain syndrome with chronic opioid
dependence, hypothyroidism
Hospital Course : Patient was an 83-year-old female with a history significant for paraesophageal hernia, odynophagia and chronic pain syndrome who presented complaining of pain and swallowing along with nausea and vomiting. She has had recurrent
food impactions similar to this. She was last admitted in May 2023 for the same. Patient uses a pur�ed diet. About 2 weeks prior to admission she began to have pain with swallowing food and liquids. She describes this as angina. It resolves
after several minutes but then recurs with eating. She did not notify anyone about the symptoms until she had an episode of nausea vomiting after lunch on the day of admission. Patient was admitted.
Problem #1: Odynophagia. This is likely due to her large paraesophageal hernia and symptoms of reflux. She was seen in consultation by GI. An endoscopy was done. No impacted food was found. Patient was placed back on her pur�ed diet which she
tolerated. She has been vacillating whether or not to have this fixed. Should she decide to do so, she should follow-up with surgery as an outpatient. She has been cleared for discharge from GI.
Problem #2: Hyponatremia. This was felt to be due to poor p.o. intake. She was placed on IV fluids. Lasix was on hold. Sodium resolved into the normal range.
Problem #3: All other medical issues. These include Atherosclerotic cardiovascular disease, aortic stenosis status post bioprosthetic aortic valve replacement, chronic diastolic congestive heart failure without exacerbation, chronic pain syndrome
with chronic opioid dependence, hypothyroidism. These medical issues were stable during her hospitalization. Medications were continued as able.
Patient is stable for discharge. If there are any questions regarding this dictation or her hospital stay, please not hesitate to call. Our office number is [phone].
Procedure findings :
EGD Impression:�- Submucosal nodule found in the proximal esophagus.
�� � � � � � � � � � � - Tortuous esophagus.
�� � � � � � � � � � � - Medium-sized paraesophageal hiatal hernia.
�� � � � � � � � � � � - A single papule (nodule) found in the stomach-
�� � � � � � � � � � � pylorus. Biopsied.
�� � � � � � � � � � � - Gastric mucosal atrophy.
�� � � � � � � � � � � - Normal examined duodenum.
Discharge Plan
-
Patient Disposition: Prison/SNF
Discharge Diagnosis/Procedures: Odynophagia with eating, hyponatremia�resolved, atherosclerotic cardiovascular disease, aortic stenosis status post bioprosthetic aortic valve replacement with chronic diastolic congestive heart failure without
exacerbation, chronic pain syndrome with chronic opioid dependence, hypothyroidism
Condition: Good
Additional Diets: Pur�ed diet--liquids as prior to admission
Activity: As tolerated
Driving Restrictions: No driving
Bathing Restrictions: None
Referrals:
Zach Goddard MD [Family Provider] - in less than 1 week
Prescriptions:
Continued
sertraline 50 MG tablet
50 mg PO HS
trcyaoujwtb-jdqphrpbw-xnx C-Mn 1 TAB tablet
1 tab PO BID
ezetimibe 10 MG tablet
10 mg PO HS
omega 2-kgm-tjf-fish oil 1 EACH capsule
1 cap PO DAILY
aspirin 81 MG tablet,delayed release (DR/EC)
81 mg PO DAILY
ascorbic acid (vitamin C) [Vitamin C] 500 MG tablet
500 mg PO DAILY
nitroglycerin 0.4 MG tablet, sublingual
0.4 mg sublingual [id number] PRN (Reason: chest pain)
rosuvastatin 5 MG tablet
5 mg PO HS
Morphine Pump
0 mg INJ Q1H
Rx Instructions:
q4n-99vj/ml and bupivacaine 10mg/ml rate 4.5mg/24 hrs
isosorbide mononitrate 60 MG tablet extended release 24 hr
60 mg PO DAILY
B-complex with vitamin C 1 CAPLET tablet
1 cap PO DAILY
PreserVision AREDS-2 1 EACH capsule
1 cap PO BID
mesalamine [Lialda] 1.2 GM tablet,delayed release (DR/EC)
2.4 g PO DAILY
alendronate 70 mg Tablet
70 mg PO SA
Rx Instructions:
SATURDAYS
pantoprazole 40 MG tablet,delayed release (DR/EC)
40 mg PO DAILY
acetaminophen 325 mg Tablet
650 mg PO Q6HPRN PRN (Reason: mild pain/fever)
carvedilol 6.25 mg Tablet
3.125 mg PO BID Qty: 0 0RF
polyethylene glycol 3350 [HealthyLax] 17 gram Powder In Packet
17 g PO DAILY Qty: 0 0RF
tamsulosin 0.4 mg Capsule
0.4 mg PO DAILY Qty: 0 0RF
sennosides [senna] 8.6 mg Tablet
17.2 mg PO DAILY
melatonin 3 mg Tablet
6 mg PO HSPRN PRN (Reason: sleep)
levothyroxine [Synthroid] 75 mcg Tablet
75 mcg PO DAILY AT 0700
famotidine [Pepcid] 20 mg Tablet
10 mg PO DAILY
magnesium hydroxide [Milk of Magnesia] 400 mg/5 mL Suspension
2,400 mg PO [id number] PRN (Reason: constipation)
amlodipine [Norvasc] 10 mg Tablet
10 mg PO DAILY
bisacodyl [Dulcolax (bisacodyl)] 10 mg Suppository
10 mg [place] Q8HPRN PRN (Reason: if no bm aftr mom)
calcium carbonate [Tums] 200 mg calcium (500 mg) Tablet,Chewable
200 mg PO Q6HPRN PRN (Reason: gerd)
furosemide [Lasix] 20 mg Tablet
20 mg PO DAILY
darifenacin 15 mg Tablet Extended Release 24 Hr
15 mg PO DAILY
cholecalciferol (vitamin D3) [Vitamin D3] 25 mcg (1,000 unit) Tablet
25 mcg PO DAILY
Refresh Optive 0.5-0.9 % Drops
1 drp BOTH EYES BID
fenofibrate 54 mg Tablet
54 mg PO DAILY
camphor-menthol 0.2-3.5 % Gel
1 applic TOPICAL TID
AZO Complete Feminine Balance 5 billion cell Capsule
2 cap PO DAILY
Gemtesa 75 mg Tablet
75 mg PO DAILY
Discharge Orders:
Discharge Patient (As Directed); Ordered 01/07/24
Ordered By: Dilcia Daigle
Discharge Date and Time
Discharge Date/Time: 01/07/24 15:18
== END 2024-01-07 15:18 | DRG 392 ==
LOC: 3 WEST ACU 23:00
PROVIDERS: Emergency Medicine; ADMITTING PHYSICIAN Hospitalist; ATTENDING PHYSICIAN Internal Medicine; CONSULT PHYSICIAN Internal Medicine Gastroenterology; EMERGENCY PHYSICIAN Emergency Medicine; FAMILY PHYSICIAN Internal Medicine
PROC: 0DB78ZX Excision of Stomach, Pylorus, Via Natural or Artificial Opening Endoscopic, Diagnostic (ICD-10-PCS; 2024-01-06)
DX: K44.9 Diaphragmatic hernia without obstruction or gangrene (principal); E87.1 Hypo-osmolality and hyponatremia; I50.32 Chronic diastolic (congestive) heart failure; N18.4 Chronic kidney disease, stage 4 (severe); I13.0 Hypertensive heart and chronic kidney disease with heart failure and stage 1 through stage 4 chronic kidney disease, or unspecified chronic kidney disease; F11.20 Opioid dependence, uncomplicated; K51.50 Left sided colitis without complications; Q39.9 Congenital malformation of esophagus, unspecified; E03.9 Hypothyroidism, unspecified; E78.00 Pure hypercholesterolemia, unspecified; I35.0 Nonrheumatic aortic (valve) stenosis; K21.9 Gastro-esophageal reflux disease without esophagitis; K29.50 Unspecified chronic gastritis without bleeding; G89.4 Chronic pain syndrome; K22.89 Other specified disease of esophagus; R13.14 Dysphagia, pharyngoesophageal phase; K22.4 Dyskinesia of esophagus; I25.119 Atherosclerotic heart disease of native coronary artery with unspecified angina pectoris; F32.A Depression, unspecified; D63.8 Anemia in other chronic diseases classified elsewhere; M81.0 Age-related osteoporosis without current pathological fracture; F41.9 Anxiety disorder, unspecified; K31.89 Other diseases of stomach and duodenum; K59.00 Constipation, unspecified; E87.6 Hypokalemia; M48.00 Spinal stenosis, site unspecified; Z66 Do not resuscitate; Z95.3 Presence of xenogenic heart valve; Z95.1 Presence of aortocoronary bypass graft; Z87.440 Personal history of urinary (tract) infections; Z88.1 Allergy status to other antibiotic agents; Z88.5 Allergy status to narcotic agent; Z88.8 Allergy status to other drugs, medicaments and biological substances; Z79.82 Long term (current) use of aspirin; Z79.890 Hormone replacement therapy
CPT/HCPCS: 88305; 80048; 80053; 83690; 83735; 83880; 83935; 84300; 84443; 85025; 85027; 87070; 93005; 97162; 99285

== ENCOUNTER → 2024-08-11 13:29 | Outpatient (REF) | payer MEDICARE, OTHER, SELFPAY | LOC: RCS 13:29 | PROVIDERS: ATTENDING PHYSICIAN Internal Medicine Cardiovascular Disease; FAMILY PHYSICIAN Nurse Practitioner | DX: Z95.2 Presence of prosthetic heart valve (principal) | CPT/HCPCS: 93306 ==

== ENCOUNTER 2025-09-28 21:33 | Inpatient (IN) | payer MEDICARE, OTHER, SELFPAY ==
[2025-09-28] VITALS (15 sets, daily range): BP systolic 127–178; BP diastolic 55–73; BMI 26.6
--- NOTE | 2025-09-28 17:20 | ED.GENMED ---
History of Present Illness
<Jose Ramon Pastor MD - Last Filed: 09/28/25 19:30>
General
Chief Complaint: Musculo-Skeletal Complaint
Time Seen by Provider: 09/28/25 15:38
<Henri eHnsley PA-C - Last Filed: 09/28/25 19:48>
History of Present Illness
History of Present Illness:
85-year-old female presents to the emergency department due to a shoulder dislocation. According to her son while being transferred approximately 12 days ago at her nursing facility she had sudden severe right shoulder pain. For reasons unknown
the shoulder was not evaluated formally until yesterday at which time the patient was sent for x-ray and ultrasound to rule out DVT. DVT study was reportedly negative but the x-ray revealed a shoulder dislocation. She arrives today for further
management of this
Past History
<Jose Ramon Pastor MD - Last Filed: 09/28/25 19:30>
Past History
ED Past Medical History: Cancer, HTN, Hypercholesterolemia, Valvular disease (Aortic valve replacement due to aortic stenosis), Hypothyroidism and Other (Paraesophageal hernia)
ED Past Surgical History: Cardiac (CABG), Gynecological (Hysterectomy 2002) and Orthopedic (Lumbar laminectomy, thoracic surgery)
Patient has exhibited threatening behavior?: No
PSI?: No
Social History
Tobacco: Non-smoker
Alcohol: None
Drug: None
Personal:
Living: with family
Employment: Retired
Family History
Family History: Other (Noncontributory)
Review of Systems
<Henri Hensley PA-C - Last Filed: 09/28/25 19:48>
Review of Systems
Allergies reviewed?: Yes
All Other Systems: ROS reviewed and negative except as documented in HPI and ROS
Phy Exam
<Henri Hensley PA-C - Last Filed: 09/28/25 19:48>
Physical Exam
Physical Exam:
GEN: Well appearing, NAD, WDWN
HEENT: Oral mucosa moist, no scleral icterus
Cardiac: Regular rate
Lung: No respiratory distress, no tachypnea
MSK: Deformity of the right shoulder with massive edema from the humeral head through to the right hand
Skin: Good color, no pallor or jaundice, no rashes
Neuro: AO x3, moves all extremities freely
Psych: Calm, cooperative
Course
<Jose Ramon Pastor MD - Last Filed: 09/28/25 19:30>
Orders/Labs/Results
Orders:
Orders
09/28/25 15:01
Shoulder, Right, Trauma [CR Shoulder, Trauma - Right] Urgent
Comment:
Reason For Exam: pain
09/28/25 16:32
Propofol [Diprivan] 20 ml .ROUTE .STK-MED
09/28/25 17:09
CR Shoulder - Right Min 2 View Urgent
Comment:
Reason For Exam: post reduction attempt
09/28/25 17:25
CT Upper Ext W/o Iv Cont Rt Urgent
Comment:
Reason For Exam: R shoulder dislocation
09/28/25 19:12
Complete Blood Count/No Diff Urgent
Comprehensive Metabolic Panel Urgent
Vital Signs
Initial and Last Documented VS:
Initial Vital Signs
Temp Pulse Resp BP Pulse Ox
97.5 F 65 16 164/71 98
09/28/25 14:59 09/28/25 14:59 09/28/25 14:59 09/28/25 14:59 09/28/25 14:59
Last Documented Vital Signs
Temp Pulse Resp BP Pulse Ox
98.1 F 51 17 163/73 100
09/28/25 18:12 09/28/25 18:45 09/28/25 18:00 09/28/25 18:30 09/28/25 17:21
<Henri Hensley PA-C - Last Filed: 09/28/25 19:48>
Orders/Labs/Results
Orders:
Orders
09/28/25 15:01
Shoulder, Right, Trauma [CR Shoulder, Trauma - Right] Urgent
Comment:
Reason For Exam: pain
09/28/25 16:32
Propofol [Diprivan] 20 ml .ROUTE .STK-MED
09/28/25 17:09
CR Shoulder - Right Min 2 View Urgent
Comment:
Reason For Exam: post reduction attempt
09/28/25 17:25
CT Upper Ext W/o Iv Cont Rt Urgent
Comment:
Reason For Exam: R shoulder dislocation
09/28/25 19:12
Complete Blood Count/No Diff Urgent
Comprehensive Metabolic Panel Urgent
Vital Signs
Initial and Last Documented VS:
Initial Vital Signs
Temp Pulse Resp BP Pulse Ox
97.5 F 65 16 164/71 98
09/28/25 14:59 09/28/25 14:59 09/28/25 14:59 09/28/25 14:59 09/28/25 14:59
Last Documented Vital Signs
Temp Pulse Resp BP Pulse Ox
98.1 F 51 17 163/73 100
09/28/25 18:12 09/28/25 18:45 09/28/25 18:00 09/28/25 18:30 09/28/25 17:21
Procedures
<Jose Ramon Pastor MD - Last Filed: 09/28/25 19:30>
Moderate Sedation
Moderate Sedation Start Time(when first medication is given): 17:00
<Henri Hensley PA-C - Last Filed: 09/28/25 19:48>
Moderate Sedation
ASA Risk Score: Class IV
Chart and allergies reviewed: Yes
Consent for anesthesia obtained: Yes
Time out completed (validating right patient & procedure): Yes
History of difficult intubation: No
Airway free of obstruction: Yes
Patient has a gag reflex: Yes
Patient is able to open mouth: Yes
Patient has no dentures: Yes
Patient has no loose teeth: Yes
Medication administered by Provider during Moderate Sedation: IV Propofol (mg)
Total dose administered: 30
Time drug administered: 17:00
Moderate Sedation Procedure End Time: 17:10
Joint/Fracture Reduction
Right Shoulder:
Indication for procedure:: Anterior/inferior dislocation of the right shoulder
Procedure completed by: Henri Hensley PA-C
Consent form signed: Yes
Joint reduced: with anesthesia sedation
Anesthesia/sedation: 1% Lidocaine and Injection to joint space
Injury was: closed
Further treatement: needs further treatment
Post reduction exam: unstable
Capillary Refill: slightly delayed
Normal distal neurovascular exam?: Yes
Additional information:
During the procedure while applying pressure to the patient's edematous right hand in order to perform linear traction, the pressure from the severe edema caused an open wound in the hand which promptly supported large volume of serosanguineous
fluid. At this time the shoulder appears to be in improved alignment thus the procedure was terminated
<Henri Hensley PA-C - Last Filed: 09/28/25 19:48>
MDM/Problems Addressed
MDM/Problems Addressed:
Unfortunately we were unable to reduce at the bedside despite intra-articular lidocaine as well as moderate sedation. Unfortunately during the moderate sedation attempt while holding pressure on the hand, the pressure that I was applying coupled
with her severe edema resulted in an explosion of serosanguineous fluid and a wound to the dorsum of the hand. The wound was cleansed and dressed however due to persistent edematous flow of serosanguineous fluid this will not be amenable to suture
closure. Ultimately the case was discussed with orthopedics who recommends CT for operative planning and OR in the morning. Will need to be n.p.o. at midnight
<Jose Ramon Pastor MD - Last Filed: 09/28/25 19:30>
*Pulse Oximetry
SaO2: 100
Oxygen Mode of Delivery: Room air
<Henri Hensley PA-C - Last Filed: 09/28/25 19:48>
*Pulse Oximetry
Patient hypoxic: no
*Critical Care Note
Total Time (30-74mins, 75-104mins- exclusive of procedures): Not Applicable
ED Attending Note
<Jose Ramon Pastor MD - Last Filed: 09/28/25 19:30>
ED Attending Note
Patient seen and examined by attending physician: Yes
ED Attending Note:
I have seen and evaluated the patient with a [id number] encounter. I have spoken to the advance practicer provider and involved in the medical history, the physical exam, medical decision making.
Evaluation and management service: agree unless noted differently below.
Results interpretation: agree unless noted differently below.
Focused HPI: 85-year-old female with extensive history presents with right shoulder pain and right arm swelling. It sounds like almost 2 weeks ago she injured her shoulder while trying to transfer to toilet has had pain and increased swelling in
the right arm. Had apparently an outpatient DVT study which was negative but x-ray which showed dislocation of the right shoulder and was referred to the ER.
Physical exam: Awake and alert. Vital signs were significant for mild hypertension. She has marked edema of the right arm extending all the way down to the hand and fingers with a large dorsal hematoma on the right hand; she has an anterior
hematoma in the right shoulder with palpable dislocation of the glenohumeral joint. She has strong right radial pulse, motor and sensory intact in the right hand
Medical Decision Makin-year-old female presents with dislocation that shoulder has been dislocated for over a week. Large amount of swelling and dorsal hand hematoma. X-ray confirms dislocation here. PA attempted reduction with joint
injection unsuccessfully. Discussed with patient she is willing to attempt reduction under sedation�repeat x-ray shows improved positioning apparent successful reduction; will review with radiologist. During reduction patient did have skin tear on
the hand with leakage of large dorsal hematoma�area was cleaned and dressed. Will review case with orthopedist. If no successful reduction will require operative repair.
CT unfortunately shows unsuccessful reduction. Discussed with orthopedist will plan for OR. Admit to hospitalist service.
-
Portions of this chart may have been created with voice recognition software.� Occasional wrong word or��sound alike� substitutions may have occurred due to the inherent limitations of voice recognition software.
Discharge Plan
Departure
Patient Disposition: Admit
Date of Disposition: 09/28/25
Time of Disposition: 19:47
Admit to: Med/Surg
Presentation/result/management discussed w/ accepting MD/DO: Hospitalist
Discharge Problem:
Anterior dislocation of right shoulder
Prescriptions:
No Action
sertraline 50 MG tablet
50 mg PO HS
paifsvxyvye-bawaxorar-kws C-Mn 1 TAB tablet
1 tab PO BID
ezetimibe 10 MG tablet
10 mg PO HS
omega 4-lwn-gzb-fish oil 1 EACH capsule
1 cap PO DAILY
aspirin 81 MG tablet,delayed release (DR/EC)
81 mg PO DAILY
ascorbic acid (vitamin C) [Vitamin C] 500 MG tablet
500 mg PO DAILY
nitroglycerin 0.4 MG tablet, sublingual
0.4 mg sublingual [id number] PRN (Reason: chest pain)
rosuvastatin 5 MG tablet
5 mg PO HS
Morphine Pump
0 mg INJ Q1H
Rx Instructions:
[id number]-60jd/ml and bupivacaine 10mg/ml rate 4.5mg/24 hrs
isosorbide mononitrate 60 MG tablet extended release 24 hr
60 mg PO DAILY
B-complex with vitamin C 1 CAPLET tablet
1 cap PO DAILY
PreserVision AREDS-2 1 EACH capsule
1 cap PO BID
mesalamine [Lialda] 1.2 GM tablet,delayed release (DR/EC)
2.4 g PO DAILY
alendronate 70 mg Tablet
70 mg PO SA
Rx Instructions:
SATURDAYS
pantoprazole 40 MG tablet,delayed release (DR/EC)
40 mg PO DAILY
acetaminophen 325 mg Tablet
650 mg PO Q6HPRN PRN (Reason: mild pain/fever)
carvedilol 6.25 mg Tablet
3.125 mg PO BID Qty: 0 0RF
polyethylene glycol 3350 [HealthyLax] 17 gram Powder In Packet
17 g PO DAILY Qty: 0 0RF
tamsulosin 0.4 mg Capsule
0.4 mg PO DAILY Qty: 0 0RF
sennosides [senna] 8.6 mg Tablet
17.2 mg PO DAILY
melatonin 3 mg Tablet
6 mg PO HSPRN PRN (Reason: sleep)
levothyroxine [Synthroid] 75 mcg Tablet
75 mcg PO DAILY AT 0700
famotidine [Pepcid] 20 mg Tablet
10 mg PO DAILY
magnesium hydroxide [Milk of Magnesia] 400 mg/5 mL Suspension
2,400 mg PO [id number] PRN (Reason: constipation)
amlodipine [Norvasc] 10 mg Tablet
10 mg PO DAILY
bisacodyl [Dulcolax (bisacodyl)] 10 mg Suppository
10 mg [place] Q8HPRN PRN (Reason: if no bm aftr mom)
calcium carbonate [Tums] 200 mg calcium (500 mg) Tablet,Chewable
200 mg PO Q6HPRN PRN (Reason: gerd)
furosemide [Lasix] 20 mg Tablet
20 mg PO DAILY
darifenacin 15 mg Tablet Extended Release 24 Hr
15 mg PO DAILY
cholecalciferol (vitamin D3) [Vitamin D3] 25 mcg (1,000 unit) Tablet
25 mcg PO DAILY
Refresh Optive 0.5-0.9 % Drops
1 drp BOTH EYES BID
fenofibrate 54 mg Tablet
54 mg PO DAILY
camphor-menthol 0.2-3.5 % Gel
1 applic TOPICAL TID
AZO Complete Feminine Balance 5 billion cell Capsule
2 cap PO DAILY
Gemtesa 75 mg Tablet
75 mg PO DAILY
Referrals:
Frankie Farias DO [Family Provider]
Interventions
Interventions:
*Risk Screen - Suicide Last Done: 09/28/25 14:59
*General Assessment Last Done: 09/28/25 14:59
*Neglect/Abuse Screening Last Done: 09/28/25 14:59
*ED- Fall Risk Assessment Last Done: 09/28/25 14:59
*ED COVID-19 Vaccine History Last Done: 09/28/25 14:59
*ED Influenza Vaccine History Last Done: 09/28/25 14:59
ED-Musculoskeletal Assessment Last Done: 09/28/25 16:37
Discharge Date and Time
Print Language: GREEN[place]
--- NOTE | 2025-09-28 19:55 | HPS.HSE ---
Addendum entered and electronically signed by Naresh Tanner DO 09/28/25 21:49:
Patient seen and examined independently. Agree with findings and plan as set forth by NOLVIA Alegria.
Patient is an 85y F with PMH significant for ASCVD, hypertension, CHF and CKD who presents to ED for evaluation of R shoulder pain and swelling. Patient has reportedly had R shoulder pain and swelling for the past 12 days according to her son.
The symptoms have steadily increased in that time. Patient evaluated in the ED and found to have dislocated R shoulder. Attempts to reduce in the ED were unsuccessful.
Ass:
Right Shoulder Dislocation
RUE Edema
R Hand Wound
ASCVD
Chronic HFpEF
Severe s/p AVR
CKD IV
Hypothyroidism
Anemia of Chronic Disease
GERD / Hiatal Hernia
Chronic Dysphagia
Chronic Pain Syndrome
Plan:
Admit for further evaluation and treatment.
Pain control / supportive care overnight.
Ortho consulted for OR / reduction in the AM.
Continue usual home medications.
Continue basal morphine pump rate.
PT / OT evaluations.
Original Note:
Family Physician
-
Family Physician: Frankie Farias DO
Chief Complaint
-
Right shoulder dislocation/pain, right arm edematous
History of Present Illness
85-year-old female who reportedly lives at nursing facility had severe sudden right shoulder pain 12 days ago while being transferred by a new nurse/aide to the toilet her son thinks they reached up under her arm and that is when she started
screaming in pain at her nursing facility [facility] where she has resided for the past 2 years. He is unsure why there was delay in x-rays. She has +3 edema from her right upper arm down to her right hand and fingers with a
hematoma to the right dorsal aspect of her hand. Yesterday she had ultrasound of her right extremity to rule out DVT which was negative but revealed shoulder dislocation. She has shoulder dislocation exhibited on x-ray in ER due to length of time
dislocated it was unable to be reduced in the ER. She had significant edema to her right hand and suffered a pressure ulceration during manual reduction in the ER. Her son states she had her morphine pain pump refilled on August [address] Henriquez
in [facility]
She has past medical history of Paraesophageal hernia,Odynophagia,Chronic pain syndrome with chronic opiate dependent,CAD/CABG,Aortic stenosis status post bioprosthetic aortic valve replacement,Chronic diastolic heart failure,Hypothyroidism CKD 4,
anemia, hypothyroidism, depression
Medical History
Past Medical History
Past Medical History: Reports Other
Additional Past Medical History:
ASCVD
Hypertension
Dyslipidemia
Chronic HFpEF
Severe aortic stenosis
CKD stage IV
Chronic Dysphagia / Odynophagia on pur�ed with thin liquid diet
Paraesophageal Hernia
Anemia of chronic disease
Chronic pain syndrome secondary to spinal stenosis with morphine pump
Recurrent urinary tract infection
GERD
? Ulcerative colitis
OAB
Hypothyroidism
Depression
Past Surgical History: Reports Other
Additional Past Surgical History:
CABG x 3
Bioprosthetic AVR
Morphine pump
RAMANA
Lumbar laminectomy
Thoracic spine surgery
Social History
Tobacco: Non-smoker
Alcohol: None
Drug: None
Living: Long-Term
Family History
Family History: Not pertinent
Allergies / Home Medications
Allergies reflects when Allergies were last updated in [facility].
Home Medications with original date entered in [facility]
Allergy/Medication List:
Allergies
Allergy/AdvReac Type Severity Reaction Status Date / Time
levofloxacin Allergy swelling Verified 01/05/24 17:23
and
itching at
site
Metronidazole HCl (From Allergy Swelling, Verified 01/05/24 17:23
Flagyl) itching
oxycodone Allergy Confusion Verified 01/05/24 17:23
Home Medications
ezetimibe 10 mg tablet 10 mg PO HS High cholesterol 03/16/09
xguxocbdzbq-siozcnonb-mdr C-Mn 750 mg-600 mg-55 mg-5 mg tablet 1 tab PO BID Supplement 03/16/09
sertraline 50 mg tablet 50 mg PO HS Mental Health/Anxiety 03/16/09
omega 1-hec-qds-fish oil 250 mg-500 mg-1,000 mg capsule 1 cap PO DAILY High cholesterol 09/21/13
ascorbic acid (vitamin C) 500 mg tablet (Vitamin C) 500 mg PO DAILY Supplement 05/29/16
aspirin 81 mg tablet,delayed release 81 mg PO DAILY Blood clot prevention/tx 05/29/16
Morphine Pump 0 mg INJ Q1H Pain 10/15/18
nitroglycerin 0.4 mg sublingual tablet 0.4 mg sublingual [id number] PRN chest pain 10/15/18
rosuvastatin 5 mg tablet 10 mg PO HS High cholesterol 10/15/18
B-complex with vitamin C 1 cap PO DAILY Supplement 10/01/20
isosorbide mononitrate 60 mg tablet,extended release 24 hr 60 mg PO DAILY ANGINA 10/01/20
vit C 250 mg-vit E 90 mg-zinc 40 mg-copper 1 xv-szdybv-uyqwwe capsule (PreserVision AREDS-2) 1 cap PO BID Eye condition 10/01/20
mesalamine 1.2 gram tablet,delayed release (Lialda) 2.4 g PO DAILY Gastrointestinal issue 11/19/20
alendronate 70 mg tablet 70 mg PO bone health 09/22/22
pantoprazole 40 mg tablet,delayed release 20 mg PO DAILY Gastrointestinal Issue 04/11/23
acetaminophen 325 mg tablet 650 mg PO Q6HPRN PRN mild pain/fever 06/01/23
carvedilol 6.25 mg tablet 3.125 mg (1/2 x 6.25 mg) PO BID #0 tabs 06/05/23
polyethylene glycol 3350 17 gram oral powder packet (HealthyLax) 17 g PO DAILY #0 ea 06/05/23
tamsulosin 0.4 mg capsule 0.4 mg PO DAILY #0 caps 06/05/23
L. crispatus, gasseri, jensenii, rhamnosus 5 billion cell capsule (AZO Complete Feminine Balance) 2 cap PO DAILY Supplement 01/05/24
amlodipine 10 mg tablet (Norvasc) 10 mg PO DAILY Blood Pressure 01/05/24
bisacodyl 10 mg rectal suppository (Dulcolax (bisacodyl)) 10 mg [place] Q8HPRN PRN if no bm aftr mom 01/05/24
calcium carbonate (Tums) 200 mg PO Q6HPRN PRN gerd 01/05/24
camphor-menthol 0.2 %-3.5 % topical gel 1 applic topical TID shoulder 01/05/24
carboxymethylcellulose 0.5 %-glycerin 0.9 % eye drops (Refresh Optive) 1 drp BOTH EYES BID Eye Condition 01/05/24
cholecalciferol (vitamin D3) 25 mcg (1,000 unit) tablet (Vitamin D3) 25 mcg PO DAILY Supplement 01/05/24
darifenacin 15 mg tablet,extended release 24 hr 15 mg PO DAILY Urinary Issue 01/05/24
famotidine 20 mg tablet (Pepcid) 10 mg PO DAILY Gastrointestinal Issue 01/05/24
furosemide 20 mg tablet (Lasix) 40 mg PO DAILY Fluid Retention/Swelling 01/05/24
levothyroxine 75 mcg tablet (Synthroid) 75 mcg PO DAILY AT 0700 Thyroid 01/05/24
magnesium hydroxide 400 mg/5 mL oral suspension (Milk of Magnesia) 2,400 mg PO [id number] PRN constipation 01/05/24
melatonin 3 mg tablet 6 mg PO HSPRN PRN sleep 01/05/24
sennosides 8.6 mg tablet (senna) 17.2 mg PO DAILY Constipation 01/05/24
vibegron 75 mg tablet (Gemtesa) 75 mg PO DAILY Urinary Issue 01/05/24
camphor-menthol 0.2 % topical TID 09/28/25
prednisone 10 mg tablet 10 mg PO DAILY 09/28/25
Review of Systems
-
History Source: Patient and Family (Son Tommy at bedside)
A 12 point ROS was completed and negative except as noted: Yes
Constitutional: Denies Fever or Chills
EENT: Denies Sore Throat or Runny Nose
Respiratory: Denies Cough or Trouble Breathing
Cardiac: Denies Chest Pain, Diaphoresis, Palpitations or Syncope
Abdomen/GI: Denies Abdominal Pain, Nausea, Vomiting or Diarrhea
: Denies Dysuria, Frequency, Flank Pain, Incontinence or Difficulty Voiding
Musculoskeletal: Reports Joint Pain (Right shoulder with elevated with pain, +3 edema circumferential right upper arm down to right hand and fingers with dorsal hand hematoma)
Skin: Denies Itching or Rash
Neurological: Denies Dizzy or Headache
Endocrine: Reports No Symptoms
Hematologic/Lymphatic: Reports No Symptoms
Psych: Reports Calm
Physical Exam
Vital Signs
Vital Signs
Temp Pulse Resp BP Pulse Ox
98.1 F 51 17 163/73 100
09/28/25 18:12 09/28/25 18:45 09/28/25 18:00 09/28/25 18:30 09/28/25 17:21
Physical Exam
General: Conversant and Pain; No Chills
HEENT: NormoCephalic, Anicteric, Moist mucous membranes, Atraumatic, PERRLA, [place] Conjunctivae and No Ptosis
Respiratory: Clear; No Wheezes, Rales or Rhonchi
Cardiac: S1/S2 and Regular Rhythm; No Murmur, Rub or Gallop
Breast: Deferred by me
GI: Soft, Non Tender, Non Distended, Normal Bowel Sounds and No Hepatosplenomegaly
Rectal: Deferred by Provider
Genito-urinary: Deferred by me
Musculoskeletal: No Clubbing, No Cyanosis and Edema, Right Upper Extremity (Right shoulder with elevated with pain, +3 edema circumferential right upper arm down to right hand and fingers with dorsal hand hematoma Galindo wrap applied to hand in ER
distal nor vascular status intact sensation intact); No Edema, Left Upper Extremity
Skin: Warm and Dry; No Rash
Neuro: AO x 3, Cranial Nerves Intact, No Sensory Deficits and Other (Chronic hard of hearing); No Slurred Speech, Facial Droop, Tremors or Sedated
Impression/Plan
-
Impression/plan:
Admit to MedSurg
#Right shoulder dislocation greater than 12 hours unable to reduce in ER
- Consult Ortho Dr. Wilkins planning for OR in a.m.
- -Continue morphine pump gets 0.24 mg/h with bupivacaine 0.25 mg/h then morphine bolus 0.5 mg every 6 hours and bupivacaine 0.25 mg every 6 hours
We will continue every hour morphine pump
- We will give IV morphine every 6 hours 0.5mg q6h=0.25ml
- Npo after midnight
- Consult Ortho- Dr hancock aware
#Edematous right hand with wound from pressure during manual reduction
- Consult wound care
- Compressive Galindo dressing applied over blister
# Chronic odynophagia,
chronic dysphagia is on pur�ed diet with thin liquids takes meds with applesauce
#Chronic HFpEF
I/O, daily weight
-Continue furosemide
CKD 4
Follow BMP
#Hypothyroidism
Continue Synthroid 75 mcg p.o. daily
#Anemia of chronic disease
Continue B complex with vitamin C
#Hypertension
- Continue amlodipine, Imdur, carvedilol 3.125 mg twice daily
#Dyslipidemia
Continue Zetia and Crestor
#Severe aortic stenosis status post aortic valve replacement
#GERD
#IBS
-Continue Protonix 20 mg daily, Pepcid, Tums
-Continue Lialda 2.4 mg daily
#Chronic Dysphagia / Odynophagia
#Paraesophageal Hernia
#Chronic pain syndrome secondary to spinal stenosis with morphine pump
-Continue morphine pump gets 0.24 mg/h with bupivacaine 0.25 mg/h then morphine bolus 0.5 mg every 6 hours and bupivacaine 0.25 mg every 6 hours
We will continue every hour morphine pump
- We will give IV morphine every 6 hours 0.5mg q6h=0.25ml
#Depression
-Continue Zoloft
#Insomnia
-Continue melatonin 6 mg at bedtime as needed
Other PMH
Recurrent urinary tract infection�continue Gemtesa 75 mg daily darifenacin 15 mg daily
? Ulcerative colitis
OAB
Osteoporosis continue alendronate 70 mg on Sundays calcium carbonate, vitamin D3
Dvt
Subcu heparin
DNR per patient with heath Sanders at bedside
[2025-09-28 20:01] LABS: Hematocrit 28.6 % (37.0-47.0); Hemoglobin 9.0 g/dL (12.0-16.0); Mean Corp Hgb Conc. 31.5 g/dL (33.0-37.0); Mean Corpuscular Volume 88.3 fL (81.0-99.0); Platelet Count 193 10^3/uL (130-400); Red Cell Dist. Width 14.7 % (11.5-14.5)
[2025-09-28 20:25] LABS: ALT (SGPT) 41 U/L (0-35); AST (SGOT) 44 U/L (14-36); Albumin 3.4 g/dl (3.5-5.0); Alkaline Phosphatase 100 U/L (38-126); Blood Urea Nitrogen 27 mg/dl (7-17); Calcium 9.4 mg/dl (8.4-10.2); Carbon Dioxide 26 mmol/L (22-30); Chloride 97 mmol/L (98-107); Glucose 92 mg/dl (70-99); Potassium 4.6 mmol/L (3.5-5.1); Sodium 128 mmol/L (135-145); Total Protein 6.1 g/dl (6.3-8.2); eGFR > 60.00
--- NOTE | 2025-09-28 22:10 | PTCARENOTE ---
New admit to 2S from ER via stretcher and pulled over to room bed without incident. Pt. A&Ox3, severely [place], states pain to RUE, even and unlabored breathing on RA, and VSS. Purewick resumed d/t extreme pain with rolling and impaired gait. RUE +2
edema throughout, R hand wrap in IRINA - CDI, extremity elevated. Pt. educated on plan of care and questions answered at time of assessment.
[2025-09-28] MEDS: ZOLOFT 50 MG PO (22:17)
[2025-09-28] MEDS: MELATONIN 6 MG PO (22:17)
[2025-09-28] MEDS: ZETIA 10 MG PO (22:18)
[2025-09-28] MEDS: CRESTOR 10 MG PO (22:18)
[2025-09-28] MEDS: NON-FORMULARY ITEM 0.24 MG INJ ×2 (22:18→22:56)
[2025-09-29] VITALS (10 sets, daily range): BP systolic 100–151; BP diastolic 59–95; BMI 26.6
[2025-09-29] MEDS: NON-FORMULARY ITEM 0.24 MG INJ ×22 (01:00→23:59)
[2025-09-29] MEDS: MORPHINE SULFATE 0.5 MG IV ×4 (01:59→20:52)
[2025-09-29] MEDS: FLUSH (NSS) 2 FLUSH IV (01:59)
--- NOTE | 2025-09-29 05:10 | CON.ORTHO ---
Consultation
-
Date/Time Consultation Requested: Oct 03
Date/Time Consultation Performed: Oct 03
Requesting Provider: NOLVIA Mcdonough
Performing Provider: Janiya for Ritting
Reason for Consultation: Right shoulder dislocation
Consultation - Orthopedics
History
History of Present Illness:
85-year-old female with PMH of paraesophageal hernia,Odynophagia,Chronic pain syndrome with chronic opiate dependent,CAD/CABG,Aortic stenosis status post bioprosthetic aortic valve replacement, Chronic diastolic heart failure, Hypothyroidism CKD 4,
anemia, hypothyroidism, depression who lives at nursing facility had severe sudden right shoulder pain 12 days ago while being transferred by a new nurse/aide to the toilet her son thinks they reached up under her arm and that is when she started
screaming in pain at her nursing facility [facility] where she has resided for the past 2 years. He is unsure why there was delay in x-rays. Thursday she had ultrasound of her right extremity to rule out DVT which was negative
but revealed shoulder dislocation. She has shoulder dislocation exhibited on x-ray in ER due to length of time dislocated it was unable to be reduced in the ER, even with intraarticular block. She had significant edema to her right hand and
suffered a pressure ulceration during manual reduction in the ER. Her son states she had her morphine pain pump refilled on August [address] Henriquez in [facility]. We have been requested for more definitive management of her right shoulder issue.
Past Medical History:
ASCVD
Hypertension
Dyslipidemia
Chronic HFpEF
Severe aortic stenosis
CKD stage IV
Chronic Dysphagia / Odynophagia on pur�ed with thin liquid diet
Paraesophageal Hernia
Anemia of chronic disease
Chronic pain syndrome secondary to spinal stenosis with morphine pump
Recurrent urinary tract infection
GERD
? Ulcerative colitis
OAB
Hypothyroidism
Depression
Past Surgical History:
CABG x 3
Bioprosthetic AVR
Morphine pump
RAMANA
Lumbar laminectomy
Thoracic spine surgery
Social History:
Tobacco: Non-smoker
Alcohol: None
Drug: None
Living: [facility]dc
Family History:
Family History: Not pertinent
ROS:
12 point negative except those mentioned in the HPI
Allergies / Home Medications
Allergy/AdvReac Type Severity Reaction Status Date / Time
levofloxacin Allergy swelling Verified 01/05/24 17:23
and
itching at
site
Metronidazole HCl (From Allergy Swelling, Verified 01/05/24 17:23
Flagyl) itching
oxycodone Allergy Confusion Verified 01/05/24 17:23
�Medication �Instructions �Recorded
ezetimibe 10 mg tablet 10 mg PO HS High cholesterol 03/16/09
wyqwguyhslc-ydfcpudqe-rcy C-Mn 750 1 tab PO BID Supplement 03/16/09
mg-600 mg-55 mg-5 mg tablet
sertraline 50 mg tablet 50 mg PO HS Mental Health/Anxiety 03/16/09
omega 1-ulf-jlb-fish oil 250 1 cap PO DAILY High cholesterol 09/21/13
mg-500 mg-1,000 mg capsule
ascorbic acid (vitamin C) 500 mg 500 mg PO DAILY Supplement 05/29/16
tablet (Vitamin C)
aspirin 81 mg tablet,delayed 81 mg PO DAILY Blood clot 05/29/16
release prevention/tx
Morphine Pump 0 mg INJ Q1H Pain 10/15/18
nitroglycerin 0.4 mg sublingual 0.4 mg sublingual [id number] PRN 10/15/18
tablet chest pain
rosuvastatin 5 mg tablet 10 mg PO HS High cholesterol 10/15/18
B-complex with vitamin C 1 cap PO DAILY Supplement 10/01/20
isosorbide mononitrate 60 mg 60 mg PO DAILY ANGINA 10/01/20
tablet,extended release 24 hr
vit C 250 mg-vit E 90 mg-zinc 40 1 cap PO BID Eye condition 10/01/20
mg-copper 1 [id number]
capsule (PreserVision AREDS-2)
mesalamine 1.2 gram tablet,delayed 2.4 g PO DAILY Gastrointestinal 11/19/20
release (Lialda) issue
alendronate 70 mg tablet 70 mg PO bone health 09/22/22
pantoprazole 40 mg tablet,delayed 20 mg PO DAILY Gastrointestinal 04/11/23
release Issue
acetaminophen 325 mg tablet 650 mg PO Q6HPRN PRN mild 06/01/23
pain/fever
carvedilol 6.25 mg tablet 3.125 mg (1/2 x 6.25 mg) PO BID #0 06/05/23
tabs
polyethylene glycol 3350 17 gram 17 g PO DAILY #0 ea 06/05/23
oral powder packet (HealthyLax)
tamsulosin 0.4 mg capsule 0.4 mg PO DAILY #0 caps 06/05/23
L. crispatus, gasseri, jensenii, 2 cap PO DAILY Supplement 01/05/24
rhamnosus 5 billion cell capsule
(AZO Complete Feminine Balance)
amlodipine 10 mg tablet (Norvasc) 10 mg PO DAILY Blood Pressure 01/05/24
bisacodyl 10 mg rectal suppository 10 mg CO Q8HPRN PRN if no bm aftr 01/05/24
(Dulcolax (bisacodyl)) mom
calcium carbonate (Tums) 200 mg PO Q6HPRN PRN gerd 01/05/24
camphor-menthol 0.2 %-3.5 % 1 applic topical TID shoulder 01/05/24
topical gel
carboxymethylcellulose 0.5 1 drp BOTH EYES BID Eye Condition 01/05/24
%-glycerin 0.9 % eye drops
(Refresh Optive)
cholecalciferol (vitamin D3) 25 25 mcg PO DAILY Supplement 01/05/24
mcg (1,000 unit) tablet (Vitamin
D3)
darifenacin 15 mg tablet,extended 15 mg PO DAILY Urinary Issue 01/05/24
release 24 hr
famotidine 20 mg tablet (Pepcid) 10 mg PO DAILY Gastrointestinal 01/05/24
Issue
furosemide 20 mg tablet (Lasix) 40 mg PO DAILY Fluid 01/05/24
Retention/Swelling
levothyroxine 75 mcg tablet 75 mcg PO DAILY AT 0700 Thyroid 01/05/24
(Synthroid)
magnesium hydroxide 400 mg/5 mL 2,400 mg PO [id number] PRN 01/05/24
oral suspension (Milk of Magnesia) constipation
melatonin 3 mg tablet 6 mg PO HSPRN PRN sleep 01/05/24
sennosides 8.6 mg tablet (senna) 17.2 mg PO DAILY Constipation 01/05/24
vibegron 75 mg tablet (Gemtesa) 75 mg PO DAILY Urinary Issue 01/05/24
camphor-menthol 0.2 % topical TID 09/28/25
prednisone 10 mg tablet 10 mg PO DAILY 09/28/25
Vital Signs / Lab Results
Temp Pulse Resp BP Pulse Ox
97.9 F 58 17 150/61 94
09/28/25 23:12 09/28/25 23:12 09/28/25 23:12 09/28/25 23:12 09/28/25 23:12
Assessment / Plan
PE: Afeb. At bedrest. In sling. RUE edematous. Generalized pain about the right shoulder. Deferred ROM due to known fracture (coracoid)/dislocation. Elbow nontender. DNVI RUE.
Diagnostics:
Xrays and CT reveal an anterior shoulder dislocation with a displaced coracoid fracture. GHJOA
Impression: MING
Plan: Discussed at length with the patient the nature of her right shoulder issue. she is dealing with a subacute anterior shoulder dislocation in the face of GHJOA any displaced coracoid fracture. Unsuccessful reduction attempted in the ED. this
may very well be an acute on chronic issue here. We discussed nonoperative and operative management and all the associated RBAs. we recommend definitive management of her acute on chronic shoulder issue with a RIGHT RTSA, which will be tentatively
planned for later today under the direction of Dr. Baker, as he and the OR are mutually available. She has accepted all the proposed risks of proceeding with surgery. Surgical and blood consents have been signed and placed in the patient's chart.
Operative site has been marked as the RIGHT shoulder. we discussed the postop and rehab course and will appreciate CM assistance with disposition. She is and will remain NPO. T&S requested. Discussed with Dr. Christina who is now aware of the tentative
plan. Assuming medical clearance we will hope to proceed. will discuss with patient's son, Soy. OR aware. Orders placed. remain in sling RUE for now. Will follow.
[2025-09-29] MEDS: SYNTHROID 75 MCG PO (06:03)
[2025-09-29 06:28] LABS: Hematocrit 26.7 % (37.0-47.0); Hemoglobin 8.4 g/dL (12.0-16.0); Mean Corp Hgb Conc. 31.5 g/dL (33.0-37.0); Mean Corpuscular Volume 86.4 fL (81.0-99.0); Nucleated Red Blood Cells % 0 %; Platelet Count 202 10^3/uL (130-400); Red Cell Dist. Width 14.7 % (11.5-14.5)
[2025-09-29 06:52] LABS: ALT (SGPT) 35 U/L (0-35); AST (SGOT) 34 U/L (14-36); Albumin 3.1 g/dl (3.5-5.0); Alkaline Phosphatase 96 U/L (38-126); Blood Urea Nitrogen 25 mg/dl (7-17); Calcium 9.5 mg/dl (8.4-10.2); Carbon Dioxide 30 mmol/L (22-30); Chloride 96 mmol/L (98-107); Estimated Creatinine Clearance 42 ml/min; Glucose 60 mg/dl (70-99); Potassium 4.0 mmol/L (3.5-5.1); Sodium 127 mmol/L (135-145); Total Protein 5.8 g/dl (6.3-8.2); eGFR > 60.00
[2025-09-29] MEDS: PROTONIX 20 MG PO (08:37)
[2025-09-29] MEDS: IMDUR (EXTENDED RELEASE) PO (08:38)
[2025-09-29] MEDS: COREG PO (08:38)
[2025-09-29] MEDS: PEPCID 10 MG PO (08:38)
[2025-09-29] MEDS: REFRESH EYE DROPS (PF) 1 DROPS BOTH EYES ×2 (08:38→20:45)
[2025-09-29] MEDS: HEPARIN 5000 UNITS SC ×2 (08:38→20:45)
[2025-09-29] MEDS: LASIX 40 MG PO (08:39)
[2025-09-29] MEDS: OCUVITE SOFTGEL 1 CAP PO ×2 (08:39→20:46)
[2025-09-29] MEDS: MIRALAX 17 GRAMS PO (08:39)
[2025-09-29] MEDS: FLOMAX 0.4 MG PO (08:39)
[2025-09-29] MEDS: VITAMIN D3 (cholecalciferol) 25 MCG PO (08:39)
[2025-09-29] MEDS: NORVASC PO (08:39)
[2025-09-29] MEDS: SENOKOT 17.2 MG PO (08:39)
--- NOTE | 2025-09-29 09:22 | PTCARENOTE ---
pt aaox3. states pain in right shoulder. pain med given as ordered pt has has implanted pain pump. pt takes pills with apple sauce. pure wick in place
[2025-09-29] MEDS: NON-FORMULARY ITEM 0.25 MG INJ ×3 (10:22→11:20)
--- NOTE | 2025-09-29 10:35 | CM ---
Chart reviewed. Spoke with patient very [place]
Attempted to speak with [facility] x2 unable to talk with anyone live and VM is full
Spoke with son Soy at [phone]
Per son's account
patient has been living in [facility] for 2 years
PLOF w/c bound but able to walk with RW and 1 person
Needs assistance with 1 person for all ADLs
PCP Dr. Frankie Farias
Spoke with Aniyah Angulo [facility] disease case manager rn in person and she spoke with patient at bedside
Her phone number is [phone]
DCP is to be discussed after her surgery
Cm will continue to follow up for any dcp needs
--- NOTE | 2025-09-29 11:35 | WOUNDNOTE ---
WON RN note: Patient admitted with R shoulder dislocation.
See H&P for complete history. Lives at [facility].
PMH: ED Past Medical History: Cancer, HTN, Hypercholesterolemia, Valvular disease (Aortic valve replacement due to aortic stenosis), Hypothyroidism and Other (Paraesophageal hernia)
ED Past Surgical History: Cardiac (CABG), Gynecological (Hysterectomy 2002) and Orthopedic (Lumbar laminectomy, thoracic surgery)
Wound Location and type/assessment: Patient sustained a skin tear and bruising to R hand when manually attempting to correct shoulder dislocation, per nursing. Small linear skin tear with +1 swelling in hand and bruising. With assistance of nurse
and PCT changed dressing on R hand, elevated on pillow. Turned patient, sacrum with stage 1 PI's vs old healed PI's, non blanchable pink ? scars. Patient incontinent of urine, [place] repositioned by PCT. Heels intact slightly boggy.
Appetite: NPO for OR today.
Pressure redistribution devices in place: On Accumax, called Bed tech Tavo for [facility] care air bed. Asked nurse Kade to switch bed when going to OR. Pillow in use under calves, protective heel foams applied.
Plan: Adaptic, folded gauze, Walt and Spandage applied to R hand. Applied Sacral silicone foam to protect sacrum.
Will confirm orders with hospitalist and updated nurse. Updated care plan and will follow as needed.
Note to case management of equipment requested for discharge: None.
Recommend follow up at wound care center upon discharge if not healing..
--- NOTE | 2025-09-29 13:04 | W.PN.HOSP.TC ---
Today's Communication/Plan
-
Assessment / Plan
Assessment / Plan
NAD
Scleral Anicteric
MMM
No JVD
CTABL
RRR, S1/S2, right upper sternal border 3/6 systolic ejection murmur
Soft, NT, ND, BS+
Warm, Dry
AAOx3
Calm
Right shoulder dislocation
OR with orthopedics for reduction
Maintain NPO
Post op PT/OT
Post op Incentive butch
Hyponatremia - Hypovelmic
Gently IV Hydrate
HTN
Continue antihypertensives
Aortic Stenosis
S/p AVR
Hypothyrodisim
Conitnue levothyroxine
CKDStage 3b
Monitor UOP
Anticipated Discharge: 24 - 48 hours
Subjective/Interval History
-
Date of Service: September 29, 2025
Seen and examined. No new complaints. No acute overnight events
Objective Data
-
Labs:
Laboratory Results
09/29/25
05:59
WBC 4.7 L
Hgb 8.4 L
Hct 26.7 L
Plt Count 202
Sodium 127 L
Potassium 4.0
Chloride 96 L
Carbon Dioxide 30
BUN 25 H
Creatinine 0.9
Glucose 60 L
Calcium 9.5
Total Bilirubin 0.3
AST 34
ALT 35
Alkaline Phosphatase 96
Vital Signs:
Vital Signs
Temp Pulse Resp BP Pulse Ox
97.4 F 62 18 100/74 97
09/29/25 08:11 09/29/25 08:11 09/29/25 08:11 09/29/25 08:39 09/29/25 08:11
I&O
09/28/25 09/29/25 09/30/25
06:59 06:59 06:59
Intake Total 480 / 480
Output Total 1200 / 1200
Balance -720 / -720
[2025-09-29] MEDS: NSS 1000 IV (14:48)
--- NOTE | 2025-09-29 15:59 | PN.CDI ---
CDI
- -
CDI:
Physician Documentation Request
Admit Date: 09/28/25 21:33
Dear Doctor,
Patient admitted for shoulder dislocation.
H&P: '#Chronic pain syndrome secondary to spinal stenosis with morphine pump
-Continue morphine pump gets 0.24 mg/h with bupivacaine 0.25 mg/h then morphine bolus 0.5 mg every 6 hours and bupivacaine 0.25 mg every 6 hours
We will continue every hour morphine pump
- We will give IV morphine every 6 hours 0.5mg q6h=0.25ml'
Based on the above, could you clarify in the progress notes, the appropriate diagnosis, if significant, that supports the above abnormalities and additional evaluation, monitoring and/or treatment rendered:
Opioid dependence
Opioid use
Other
Use of terms such as suspected, likely, concern for, or probable (associated with a specific diagnosis that is being evaluated, monitored, or treated as if it exists) are acceptable and can be coded in the inpatient setting, when documented at the
time of discharge.
Thank you,
Liseth Tripp RN, BSN
CDI Specialist
Available via [facility] text
Please use your independent medical judgment in providing your response.
--- NOTE | 2025-09-29 18:29 | W.PN.UPDATE ---
Update Note
Progress Note Update
85F status post right shoulder hemiarthroplasty
- Surgery of the shoulder hemiarthroplasty due to chronic dislocation and inferior bone stock of the glenoid for reverse TSA
- Strict internal rotation shoulder immobilizer x 8 weeks. May perform elbow wrist and hand range of motion.
- DVT prophylaxis per primary
- Diet placed, changes needed per primary
- Postoperative antibiotics as ordered
- Nonweightbearing to right upper extremity
- PT/OT/discharge planning
- Pain regimen in place
[2025-09-29] MEDS: COREG 3.125 MG PO (20:46)
[2025-09-29] MEDS: ZETIA 10 MG PO (20:46)
[2025-09-29] MEDS: ZOLOFT 50 MG PO (20:46)
[2025-09-29] MEDS: CRESTOR 10 MG PO (20:48)
[2025-09-29] MEDS: ANCEF 5 IV (23:59)
[2025-09-30] MEDS: NON-FORMULARY ITEM 0.24 MG INJ ×23 (02:00→23:00)
[2025-09-30 03:21] VITALS: BP 147/59
[2025-09-30] MEDS: MORPHINE SULFATE IV (04:05)
[2025-09-30] MEDS: NSS IV (04:06)
[2025-09-30 06:00] VITALS: BMI 27.0
[2025-09-30] MEDS: SYNTHROID 75 MCG PO (06:22)
[2025-09-30] MEDS: MORPHINE SULFATE 0.5 MG IV ×3 (06:23→18:16)
[2025-09-30 06:27] LABS: Hematocrit 27.6 % (37.0-47.0); Hemoglobin 9.1 g/dL (12.0-16.0); Mean Corp Hgb Conc. 33.0 g/dL (33.0-37.0); Mean Corpuscular Volume 85.4 fL (81.0-99.0); Nucleated Red Blood Cells % 0 %; Platelet Count 186 10^3/uL (130-400); Red Cell Dist. Width 15.0 % (11.5-14.5)
[2025-09-30 06:58] LABS: ALT (SGPT) 26 U/L (0-35); AST (SGOT) 33 U/L (14-36); Albumin 3.0 g/dl (3.5-5.0); Alkaline Phosphatase 93 U/L (38-126); Blood Urea Nitrogen 29 mg/dl (7-17); Calcium 8.7 mg/dl (8.4-10.2); Carbon Dioxide 29 mmol/L (22-30); Chloride 99 mmol/L (98-107); Estimated Creatinine Clearance 42 ml/min; Glucose 81 mg/dl (70-99); Potassium 4.2 mmol/L (3.5-5.1); Sodium 133 mmol/L (135-145); Total Protein 5.3 g/dl (6.3-8.2); eGFR > 60.00
[2025-09-30 07:25] VITALS: BP 133/90
--- NOTE | 2025-09-30 08:24 | W.PN.ORTHO ---
Today's Communication / Plan
-
85F status post right shoulder hemiarthroplasty
- Patient underwent shoulder hemiarthroplasty due to chronic dislocation and inferior bone stock of the glenoid for reverse TSA
- Strict internal rotation shoulder immobilizer x 8 weeks to avoid dislocation. May perform elbow wrist and hand range of motion.
- DVT prophylaxis per primary
- Diet per primary
- Postoperative antibiotics as ordered
- Nonweightbearing to right upper extremity
- PT/OT/discharge planning
- Pain regimen in place
-Ortho surg will continue to follow
Assessment
.
Distal Motor Intact: Yes
Dressing:
Clean, dry and intact.
Plan
.
Surgery / Date: 09/29 R shoulder hemiarthroplasty w/ Dr. Baker
Activity:
Out of bed.
PT/OT
Subjective
.
.:
Patient resting comfortably.
Vital Signs and Labs
.
Vital Signs and Labs:
Lab Results
09/30/25 06:02
09/30/25 06:02
Temp Pulse Resp BP Pulse Ox
98.1 F 67 18 147/59 99
09/30/25 03:21 09/30/25 03:21 09/30/25 03:21 09/30/25 03:21 09/30/25 03:21
[2025-09-30] MEDS: NORVASC 10 MG PO (09:05)
[2025-09-30] MEDS: REFRESH EYE DROPS (PF) 1 DROPS BOTH EYES ×2 (09:05→20:14)
[2025-09-30] MEDS: LASIX 40 MG PO (09:05)
[2025-09-30] MEDS: VITAMIN D3 (cholecalciferol) 25 MCG PO (09:05)
[2025-09-30] MEDS: COREG 3.125 MG PO ×2 (09:05→20:13)
[2025-09-30] MEDS: PROTONIX 20 MG PO (09:06)
[2025-09-30] MEDS: FLOMAX 0.4 MG PO (09:06)
[2025-09-30] MEDS: OCUVITE SOFTGEL 1 CAP PO ×2 (09:06→20:13)
[2025-09-30] MEDS: IMDUR (EXTENDED RELEASE) 60 MG PO (09:06)
[2025-09-30] MEDS: PEPCID 10 MG PO (09:06)
[2025-09-30] MEDS: SENOKOT 17.2 MG PO (09:06)
[2025-09-30] MEDS: HEPARIN 5000 UNITS SC ×2 (09:07→20:13)
[2025-09-30] MEDS: MIRALAX 17 GRAMS PO (09:07)
[2025-09-30] MEDS: ANCEF 5 IV (09:07)
[2025-09-30 11:15] VITALS: BP 102/48
--- NOTE | 2025-09-30 11:52 | W.PN.HOSP.TC ---
Addendum entered and electronically signed by Morgan Christina MD 09/30/25 14:23:
Opiod dependence
Continue morphine pump gets 0.24 mg/h with bupivacaine 0.25 mg/h then morphine bolus 0.5 mg every 6 hours and bupivacaine 0.25 mg every 6 hours
We will continue every hour morphine pump
IV morphine q6h
Original Note:
Today's Communication/Plan
-
Assessment / Plan
Assessment / Plan
NAD
Scleral Anicteric
MMM
No JVD
CTABL
RRR, S1/S2, right upper sternal border 3/6 systolic ejection murmur
Soft, NT, ND, BS+
Right arm in sling
Warm, Dry
AAOx3
Calm
Right shoulder dislocation
s/p pod 1 right shoulder hemiarthroplasty
Strict internal rotation shoulder immobilizer x 8 weeks to avoid dislocation
May perform elbow wrist and hand range of motion
Post op PT/OT
Post op Incentive butch
Hyponatremia - Hypovelmic
Gently IV Hydrate
HTN
Continue antihypertensives
Aortic Stenosis
S/p AVR
Hypothyrodisim
Conitnue levothyroxine
CKDStage 3b
Monitor UOP
Anticipated Discharge: 24 - 48 hours
Subjective/Interval History
-
Date of Service: September 30, 2025
seen and examined. no acute overnight events.
tolerated surgery well with right shoulder hemiarthroplasty
Objective Data
-
Labs:
Laboratory Results
09/30/25
06:02
WBC 6.2
Hgb 9.1 L
Hct 27.6 L
Plt Count 186
Sodium 133 L
Potassium 4.2
Chloride 99
Carbon Dioxide 29
BUN 29 H
Creatinine 0.9
Glucose 81
Calcium 8.7
Total Bilirubin 0.3
AST 33
ALT 26
Alkaline Phosphatase 93
Vital Signs:
Vital Signs
Temp Pulse Resp BP Pulse Ox
98.6 F 64 16 102/48 92
09/30/25 11:15 09/30/25 11:15 09/30/25 11:15 09/30/25 11:15 09/30/25 11:15
I&O
09/29/25 09/30/25 10/01/25
06:59 06:59 06:59
Intake Total 480 / 480 180 / 180
Output Total 1200 / 1200 1850 / 1850
Balance -720 / -720 -1670 / -1670
[2025-09-30 12:03] VITALS: BP 102/48; PULSE 64
[2025-09-30 15:20] VITALS: BP 104/45
--- NOTE | 2025-09-30 15:28 | PTCARENOTE ---
Assumed care of pt this am. Order noted for 1 unit PRBCs to be given. Blood 'ready for transfusion'. Per night RN, 2nd unit on hold pending hgb/hct this am. Dr Christina and [facility] made aware. No new orders received. Care ongoing at this
time.
[2025-09-30] MEDS: MILK OF MAGNESIA 30 ML PO (18:15)
[2025-09-30] MEDS: ZETIA 10 MG PO (22:39)
[2025-09-30] MEDS: ZOLOFT 50 MG PO (22:39)
[2025-09-30] MEDS: CRESTOR 10 MG PO (22:39)
[2025-09-30 23:14] VITALS: BP 140/60
[2025-10-01] MEDS: MORPHINE SULFATE 0.5 MG IV ×4 (00:22→18:29)
[2025-10-01] MEDS: NON-FORMULARY ITEM 0.24 MG INJ ×24 (00:23→23:10)
[2025-10-01] MEDS: SYNTHROID 75 MCG PO (05:51)
[2025-10-01 06:00] VITALS: BMI 26.9
[2025-10-01 07:20] VITALS: BP 141/64
--- NOTE | 2025-10-01 08:15 | W.PN.HOSP.TC ---
Today's Communication/Plan
-
Assessment / Plan
Assessment / Plan
NAD
Scleral Anicteric
MMM
No JVD
CTABL
RRR, S1/S2, right upper sternal border 3/6 systolic ejection murmur
Soft, NT, ND, BS+
Right arm in sling
Warm, Dry
AAOx3
Calm
Right shoulder dislocation
s/p pod 1 right shoulder hemiarthroplasty
Strict internal rotation shoulder immobilizer x 8 weeks to avoid dislocation
May perform elbow wrist and hand range of motion
Post op PT/OT
Post op Incentive butch
Opiod dependence
Continue morphine pump gets 0.24 mg/h with bupivacaine 0.25 mg/h then morphine bolus 0.5 mg every 6 hours and bupivacaine 0.25 mg every 6 hours
We will continue every hour morphine pump
IV morphine q6h
Hyponatremia - Hypovelmic
Gently IV Hydrate
HTN
Continue antihypertensives
Aortic Stenosis
S/p AVR
Hypothyrodisim
Conitnue levothyroxine
CKDStage 3b
Monitor UOP
SNF
Anticipated Discharge: 24 - 48 hours
Subjective/Interval History
-
Date of Service: October 01, 2025
seen and examined. no acute overnight events. no new complaints.
Objective Data
-
Vital Signs:
Vital Signs
Temp Pulse Resp BP Pulse Ox
98.4 F 70 16 141/64 95
10/01/25 07:20 10/01/25 07:20 10/01/25 07:20 10/01/25 07:20 10/01/25 07:20
I&O
09/30/25 10/01/25 10/02/25
06:59 06:59 06:59
Intake Total 180 / 180 840 / 840
Output Total 1850 / 1850 225 / 225
Balance -1670 / -1670 615 / 615
[2025-10-01] MEDS: LASIX 40 MG PO (08:39)
[2025-10-01] MEDS: PROTONIX 20 MG PO (08:40)
[2025-10-01] MEDS: COREG 3.125 MG PO ×2 (08:40→21:08)
[2025-10-01] MEDS: OCUVITE SOFTGEL 1 CAP PO ×2 (08:40→21:07)
[2025-10-01] MEDS: REFRESH EYE DROPS (PF) 1 DROPS BOTH EYES ×2 (08:40→21:07)
[2025-10-01] MEDS: SENOKOT 17.2 MG PO (08:40)
[2025-10-01] MEDS: FLOMAX 0.4 MG PO (08:40)
[2025-10-01] MEDS: PEPCID 10 MG PO (08:41)
[2025-10-01] MEDS: IMDUR (EXTENDED RELEASE) 60 MG PO (08:41)
[2025-10-01] MEDS: MIRALAX 17 GRAMS PO (08:41)
[2025-10-01] MEDS: VITAMIN D3 (cholecalciferol) 25 MCG PO (08:41)
[2025-10-01] MEDS: NORVASC 10 MG PO (08:41)
[2025-10-01] MEDS: HEPARIN 5000 UNITS SC ×2 (08:42→21:06)
--- NOTE | 2025-10-01 08:57 | W.PN.ORTHO ---
Today's Communication / Plan
-
85F status post right shoulder hemiarthroplasty
- Patient underwent shoulder hemiarthroplasty due to chronic dislocation and inferior bone stock of the glenoid for reverse TSA
- Strict internal rotation shoulder immobilizer x 8 weeks to avoid dislocation. May perform elbow wrist and hand range of motion.
- DVT prophylaxis per primary
- Diet per primary
- Nonweightbearing to right upper extremity
- PT/OT/discharge planning
- Pain regimen in place
-Ortho surg will follow peripherally- DC info UTD
Assessment
.
Distal Motor Intact: Yes
Dressing:
Clean, dry and intact.
Plan
.
Surgery / Date: 09/29 R shoulder hemiarthroplasty w/ Dr. Baker
Activity:
Out of bed.
PT/OT
Subjective
.
.:
Patient resting comfortably.
Vital Signs and Labs
.
Vital Signs and Labs:
Lab Results
09/30/25 06:02
09/30/25 06:02
Temp Pulse Resp BP Pulse Ox
98.4 F 70 16 141/64 95
10/01/25 07:20 10/01/25 07:20 10/01/25 07:20 10/01/25 07:20 10/01/25 07:20
[2025-10-01 10:19] VITALS: BP 103/61; PULSE 74
[2025-10-01 10:36] VITALS: BP 103/61; PULSE 74
--- NOTE | 2025-10-01 10:56 | W.PN.HOSP.TC ---
Today's Communication/Plan
-
Assessment / Plan
Assessment / Plan
NAD
Scleral Anicteric
MMM
No JVD
CTABL
RRR, S1/S2, right upper sternal border 3/6 systolic ejection murmur
Soft, NT, ND, BS+
Right arm in sling
Warm, Dry
AAOx3
Calm
Right shoulder dislocation
s/p pod 1 right shoulder hemiarthroplasty
Strict internal rotation shoulder immobilizer x 8 weeks to avoid dislocation
May perform elbow wrist and hand range of motion
Post op PT/OT
Post op Incentive butch
Opiod dependence
Continue morphine pump gets 0.24 mg/h with bupivacaine 0.25 mg/h then morphine bolus 0.5 mg every 6 hours and bupivacaine 0.25 mg every 6 hours
We will continue every hour morphine pump
IV morphine q6h
Hyponatremia - Hypovelmic
Gently IV Hydrate
HTN
Continue antihypertensives
Aortic Stenosis
S/p AVR
Hypothyrodisim
Conitnue levothyroxine
CKDStage 3b
Monitor UOP
SNF
Anticipated Discharge: Within 24 hours
Subjective/Interval History
-
Date of Service: October 01, 2025
Objective Data
-
Vital Signs:
Vital Signs
Temp Pulse Resp BP Pulse Ox
98.4 F 70 16 141/64 95
10/01/25 07:20 10/01/25 07:20 10/01/25 07:20 10/01/25 07:20 10/01/25 07:20
I&O
09/30/25 10/01/25 10/02/25
06:59 06:59 06:59
Intake Total 180 / 180 840 / 840
Output Total 1850 / 1850 225 / 225
Balance -1670 / -7390 615 / 615
[2025-10-01] MEDS: DULCOLAX 10 MG RECTAL (14:00)
[2025-10-01 15:00] VITALS: BP 118/49
[2025-10-01] MEDS: ZETIA 10 MG PO (21:07)
[2025-10-01] MEDS: ZOLOFT 50 MG PO (21:07)
[2025-10-01] MEDS: CRESTOR 10 MG PO (21:07)
[2025-10-01 23:01] VITALS: BP 119/50
[2025-10-02] MEDS: NON-FORMULARY ITEM 0.24 MG INJ ×15 (00:07→14:00)
[2025-10-02] MEDS: MORPHINE SULFATE 0.5 MG IV ×4 (00:08→18:28)
[2025-10-02] MEDS: SYNTHROID 75 MCG PO (05:34)
[2025-10-02 06:00] VITALS: BMI 26.9
[2025-10-02 07:29] LABS: Blood Urea Nitrogen 38 mg/dl (7-17); Calcium 8.8 mg/dl (8.4-10.2); Carbon Dioxide 33 mmol/L (22-30); Chloride 101 mmol/L (98-107); Estimated Creatinine Clearance 34 ml/min; Glucose 73 mg/dl (70-99); Potassium 4.1 mmol/L (3.5-5.1); Sodium 134 mmol/L (135-145); eGFR 48.94
[2025-10-02 08:05] VITALS: BP 138/70
[2025-10-02] MEDS: COREG 3.125 MG PO ×2 (09:14→21:14)
[2025-10-02] MEDS: NORVASC 10 MG PO (09:14)
[2025-10-02] MEDS: HEPARIN 5000 UNITS SC ×2 (09:15→21:14)
[2025-10-02] MEDS: PROTONIX 20 MG PO (09:15)
[2025-10-02] MEDS: IMDUR (EXTENDED RELEASE) 60 MG PO (09:15)
[2025-10-02] MEDS: VITAMIN D3 (cholecalciferol) 25 MCG PO (09:15)
[2025-10-02] MEDS: LASIX 40 MG PO (09:15)
[2025-10-02 09:16] LABS: Hematocrit 22.1 % (37.0-47.0); Hemoglobin 7.1 g/dL (12.0-16.0); Mean Corp Hgb Conc. 32.1 g/dL (33.0-37.0); Mean Corpuscular Volume 86.7 fL (81.0-99.0); Platelet Count 154 10^3/uL (130-400); Red Cell Dist. Width 14.9 % (11.5-14.5)
[2025-10-02] MEDS: FLOMAX 0.4 MG PO (09:16)
[2025-10-02] MEDS: MIRALAX PO (09:16)
[2025-10-02] MEDS: OCUVITE SOFTGEL 1 CAP PO ×2 (09:16→21:14)
[2025-10-02] MEDS: PEPCID 10 MG PO (09:16)
[2025-10-02] MEDS: SENOKOT PO (09:17)
[2025-10-02] MEDS: REFRESH EYE DROPS (PF) 1 DROPS BOTH EYES ×2 (09:17→21:13)
--- NOTE | 2025-10-02 09:21 | W.PN.HOSP.TC ---
Today's Communication/Plan
-
One unit of blood
likely dc in am
Assessment / Plan
Assessment / Plan
Physical exam:
General: Chronically ill looking. No Apparent Distress
HEENT: Normocephalic and Atraumatic
Respiratory: Clear to Auscultation; Negative Wheezes or Rhonchi
Cardiac: Regular Rhythm and S1/S2; Negative Murmur
GI: Soft, Nontender, Nondistended and Normal Bowel Sounds
Musculoskeletal: No Clubbing, No Cyanosis and No Edema. Right shoulder sling
Neuro: Awake, she followed commands, oriented to self and surroundings.
Psych: Calm
Right shoulder dislocation
s/p 09/29 R shoulder hemiarthroplasty w/ Dr. Baker
Strict internal rotation shoulder immobilizer x 8 weeks to avoid dislocation
May perform elbow wrist and hand range of motion
Post op PT/OT
Post op Incentive butch
Chronic pain syndrome with opioid dependence
Continue morphine pump gets 0.24 mg/h with bupivacaine 0.25 mg/h then morphine bolus 0.5 mg every 6 hours and bupivacaine 0.25 mg every 6 hours
We will continue every hour morphine pump
IV morphine q6h, can dc on morphine orally as PRN.
Hyponatremia
improved
# Acute blood loss anemia
Given one unit on 09/29, will give another one 10/02
due to surgery and fracture
Primary HTN
Continue antihypertensives
Aortic Stenosis
S/p AVR
Hypothyroidism
Continue levothyroxine
Acute on CKDStage 3b
Monitor UOP
Total time spent to see the patient, examine the patient, review data and lab results, discuss treatment plan with patient, nursing staff around 55 minutes�
Anticipated Discharge: Within 24 hours
Subjective/Interval History
-
Date of Service: October 02, 2025
No chest pain
No abdominal pain
Objective Data
-
Labs:
Laboratory Results
10/02/25
06:24
WBC 5.8
Hgb 7.1 L D
Hct 22.1 L
Plt Count 154
Sodium 134 L
Potassium 4.1
Chloride 101
Carbon Dioxide 33 H
BUN 38 H
Creatinine 1.1 H
Glucose 73
Calcium 8.8
Vital Signs:
Vital Signs
Temp Pulse Resp BP Pulse Ox
97.5 F 68 16 138/70 91
10/02/25 08:05 10/02/25 08:05 10/02/25 08:05 10/02/25 08:05 10/02/25 08:05
I&O
10/01/25 10/02/25 10/03/25
06:59 06:59 06:59
Intake Total 840 / 840 1080 / 1080
Output Total 225 / 225
Balance 615 / 615 1080 / 1080
--- NOTE | 2025-10-02 10:17 | CM ---
CM reviewed pt with attending- not ready for dc today due to hgb
Call with son/Soy with updatE
he confirmed plan for pt to return to [facility] for LTC
Update provided to [facility] [employer] immigration investigator/Aniyah Angulo [phone]
Clinicals faxed per her request to [phone]
Return SNF referral sent via [facility]
Discharge Disposition- return to [facility] for LTC
[2025-10-02 14:57] VITALS: BP 120/44
[2025-10-02 15:16] VITALS: BP 100/48
[2025-10-02 15:59] VITALS: BP 100/48
--- NOTE | 2025-10-02 17:45 | PTCARENOTE ---
Pt transfused with one unit of PRBC's, no signs or symptoms of transfusion reaction noted.
[2025-10-02 17:50] VITALS: BP 131/55
[2025-10-02] MEDS: NON-FORMULARY ITEM INJ ×3 (18:35→18:36)
[2025-10-02] MEDS: CRESTOR 10 MG PO (21:13)
[2025-10-02] MEDS: ZOLOFT 50 MG PO (21:14)
[2025-10-02] MEDS: ZETIA 10 MG PO (21:14)
[2025-10-02 23:05] VITALS: BP 126/43
[2025-10-03] MEDS: MORPHINE SULFATE 0.5 MG IV ×2 (00:19→06:14)
[2025-10-03 06:00] VITALS: BMI 26.8
[2025-10-03] MEDS: SYNTHROID 75 MCG PO (06:13)
[2025-10-03 07:23] LABS: Hematocrit 24.7 % (37.0-47.0); Hemoglobin 8.3 g/dL (12.0-16.0); Mean Corp Hgb Conc. 33.6 g/dL (33.0-37.0); Mean Corpuscular Volume 87.3 fL (81.0-99.0); Platelet Count 151 10^3/uL (130-400); Red Cell Dist. Width 14.9 % (11.5-14.5)
[2025-10-03 08:04] VITALS: BP 135/49
[2025-10-03 08:19] LABS: Blood Urea Nitrogen 38 mg/dl (7-17); Calcium 9.2 mg/dl (8.4-10.2); Carbon Dioxide 32 mmol/L (22-30); Chloride 102 mmol/L (98-107); Estimated Creatinine Clearance 38 ml/min; Glucose 76 mg/dl (70-99); Potassium 4.2 mmol/L (3.5-5.1); Sodium 133 mmol/L (135-145); eGFR 54.87
[2025-10-03] MEDS: SENOKOT PO (09:04)
[2025-10-03] MEDS: MIRALAX PO (09:04)
[2025-10-03] MEDS: HEPARIN 5000 UNITS SC (09:05)
[2025-10-03] MEDS: LASIX 40 MG PO (09:05)
[2025-10-03] MEDS: REFRESH EYE DROPS (PF) 1 DROPS BOTH EYES (09:05)
[2025-10-03] MEDS: COREG 3.125 MG PO (09:06)
[2025-10-03] MEDS: IMDUR (EXTENDED RELEASE) 60 MG PO (09:06)
[2025-10-03] MEDS: PROTONIX 20 MG PO (09:06)
[2025-10-03] MEDS: NORVASC 10 MG PO (09:06)
[2025-10-03] MEDS: FLOMAX 0.4 MG PO (09:06)
[2025-10-03] MEDS: PEPCID 10 MG PO (09:07)
[2025-10-03] MEDS: OCUVITE SOFTGEL 1 CAP PO (09:07)
[2025-10-03] MEDS: VITAMIN D3 (cholecalciferol) 25 MCG PO (09:07)
--- NOTE | 2025-10-03 09:56 | W.PN.HOSP.TC ---
Today's Communication/Plan
-
dc
Assessment / Plan
Assessment / Plan
Physical exam:
General: Chronically ill looking. No Apparent Distress
HEENT: Normocephalic and Atraumatic
Respiratory: Clear to Auscultation; Negative Wheezes or Rhonchi
Cardiac: Regular Rhythm and S1/S2; Negative Murmur
GI: Soft, Nontender, Nondistended and Normal Bowel Sounds
Musculoskeletal: No Clubbing, No Cyanosis and No Edema. Right shoulder sling
Neuro: Awake, she followed commands, oriented to self and surroundings.
Psych: Calm
Right shoulder dislocation
s/p 09/29 R shoulder hemiarthroplasty w/ Dr. Baker
Strict internal rotation shoulder immobilizer x 8 weeks to avoid dislocation
May perform elbow wrist and hand range of motion
Post op PT/OT
Post op Incentive butch
Chronic pain syndrome with opioid dependence
Continue morphine pump gets 0.24 mg/h with bupivacaine 0.25 mg/h then morphine bolus 0.5 mg every 6 hours and bupivacaine 0.25 mg every 6 hours
We will continue every hour morphine pump
IV morphine q6h, can dc on morphine orally as PRN.
Hyponatremia
improved
# Acute blood loss anemia due to surgery and fracture
Given 2 units of RBCs, HGB 8.3, started on oral iron.
Primary HTN
Continue antihypertensives
Aortic Stenosis
S/p AVR
Hypothyroidism
Continue levothyroxine
Acute on CKDStage 3b
Monitor UOP
DC plan d/w son, he gave consent to use pain medicine pump in [place], he said that patient could consent on and off. Pt is left handed and had shaking while was trying to sign consent. Nurse was witness.
Total discharge time spent to see the patient, examine the patient, review data and lab results, discuss discharge plan with patient, family, CM, nursing staff around 67 minutes�
Anticipated Discharge: Today
Subjective/Interval History
-
Date of Service: October 03, 2025
No chest pain
No SOB
No fevers
Objective Data
-
Labs:
Laboratory Results
10/03/25
06:17
WBC 5.3
Hgb 8.3 L
Hct 24.7 L
Plt Count 151
Sodium 133 L
Potassium 4.2
Chloride 102
Carbon Dioxide 32 H
BUN 38 H
Creatinine 1.0
Glucose 76
Calcium 9.2
Vital Signs:
Vital Signs
Temp Pulse Resp BP Pulse Ox
98.1 F 767 15 135/49 90
10/03/25 08:04 10/03/25 09:06 10/03/25 08:04 10/03/25 09:06 10/03/25 08:04
I&O
10/02/25 10/03/25 10/04/25
06:59 06:59 06:59
Intake Total 1080 / 1080 1450 / 1450
Balance 1080 / 1080 1450 / 1450
--- NOTE | 2025-10-03 10:33 | CM ---
CM reviewed pt with attending- ready for dc
Confirmed SNF return with [facility] admissions
Call with son/Soy, he is in agreement with the plan
IMM verbally reveiwed over phone- he declined emailed copy
Bedside update to pt- copy of IMM provided bedside
Medical necessity completed
Update provided to [facility] [employer] industry operations investigator/Aniyah Angulo [phone] via
Discharge Disposition- return to [facility] SNF for LTC via BLS
Phone- [phone] ext. [phone] Fax- [phone]
[2025-10-03 11:44] VITALS: BP 130/97
--- NOTE | 2025-10-03 12:17 | PN.CDI ---
Addendum entered and electronically signed by Margarita Morris MD 10/03/25 12:25:
ALVARO remains a known condition
Original Note:
CDI
- -
CDI:
Physician Documentation Request
Admit Date: 09/28/25 21:33
Dear Doctor,
Patient admitted for shoulder dislocation.
10/02 Hospitalist PN: 'Acute on CKDStage 3b'
Laboratory Tests
09/28/25 09/30/25 10/02/25
19:50 06:02 06:24
Creatinine 0.8 0.9 1.1 H
The purpose of this query is not to question medical judgement, but to ensure the accuracy of the conditions reported for your patient.
There is either a lack of clinical support for this condition in the current medical record, or there is a lack of recognized standard criteria to support the condition.
Criteria for ALVARO*
1 Increase in serum creatinine by > or = to 0.3 mg/dL (> or = to 26.5 micromol/L) within 48 hours, OR
2 Increase in serum creatinine to > or = to 1.5 times baseline, which is known or presumed to have occurred within 7 days, OR
3 Urine volume < 0.5 nL/kg/hour for six hours
The request is for one of the following:
- Additional documentation to support the condition. Indicate if this is in lieu of what may be considered standard criteria, and/or support why the standard criteria may not be present for this patient.
- A more appropriate diagnosis, reflecting the patient's condition
- ALVARO remains a known or suspected condition for this patient and is further supported by (include additional documentation in the medical record)
- ALVARO has been ruled out and a more appropriate diagnosis for this patient's condition is CKD 3b.
- Other (please specify)
- Unable to determine
Use of terms such as suspected, likely, concern for, or probable (associated with a specific diagnosis that is being evaluated, monitored, or treated as if it exists) are acceptable and can be coded in the inpatient setting, when documented at the
time of discharge.
Thank you,
Liseth Tripp RN, BSN
CDI Specialist
Available via Telephone text
Please use your independent medical judgment in providing your response.
--- NOTE | 2025-10-04 13:15 | W.DCSUMMARY ---
Discharge Summary
Discharge Data
Date of Admission: 09/28/25
Date of Discharge: 10/03/25
-
Pending Results: No
Hospital Course
85 years old female presented with severe right shoulder pain. Patient had an out side of the hospital imaging study that showed dislocation. Patient was admitted for management of right shoulder dislocation. Patient was evaluated by orthopedic
doctor. Patient underwent right shoulder hemiarthroplasty on 09/29/25. Orthopedic doctor recommended nonoperative management of the right coracoid fracture. Patient received 1 unit of blood transfusion for treatment of chronic anemia on 09/29.
Subsequent hemoglobin check with hemoglobin 7.1. Patient was given another unit of blood transfusion on 10/02 with no complications. She was started on oral iron therapy. Patient has a chronic pain syndrome with opioid dependency. She was
maintained on her pump. She was given interval doses of short acting morphine to help with breakthrough pain. Patient was evaluated by physical therapy. She remained hemodynamically stable. [facility] a
stable condition.
Discharge Plan
-
Patient Disposition: Senior Living/SNF
Discharge Diagnosis/Procedures: -Right shoulder dislocation status post shoulder hemiarthroplasty w/ Dr. Baker on 09/29/25
-Acute blood loss anemia status post blood transfusion, started on oral iron therapy.
- Chronic pain syndrome with opioid dependence
- You currently use oral supplements upon completion of rehab to avoid drug interaction.
Diet: As tolerated
Activity: Other activity
Additional Activity: Strict internal rotation of right shoulder with immobilizer x 8 weeks to avoid dislocation. May perform elbow wrist and hand range of motion.
Driving Restrictions: No driving
Bathing Restrictions: OK to Shower
Activity Restrictions/Additional Instructions:
Wound Care Instructions
R hand dorsal: clean with saline, Adaptic, folded gauze, Walt and Spandage change q other day and prn drainage.
Sacrum: clean with soap and water, sacral silicone foam change q 3 days and prn soilage
Follow up at wound care center if R hand does not heal call for an appointment.
Instructions: Shoulder replacement (DC)
Referrals:
Frankie Farias DO [Family Provider]
Christopher Baker MD [Active, Orthopedics]
Referral Note: follow-up 2 weeks from date of surgery if discharged home- if discharged to SNF/ARF, lesley can be removed there, and then outpatient follow-up 4 weeks from DOS with x-rays to be done (mobile if cannot transfer to xray table)
Prescriptions:
New
morphine 15 mg tablet
15 mg PO Q6H PRN (Reason: moderate to severe pain) Qty: 20 0RF
ferrous sulfate 325 mg (65 mg iron) tablet
325 mg PO DAILY Qty: 30 0RF
Continued
sertraline 50 MG tablet
50 mg PO HS
ezetimibe 10 MG tablet
10 mg PO HS
omega 3-pef-fob-fish oil 1 EACH capsule
1 cap PO DAILY
aspirin 81 MG tablet,delayed release (DR/EC)
81 mg PO DAILY
nitroglycerin 0.4 MG tablet, sublingual
0.4 mg sublingual [id number] PRN (Reason: chest pain)
rosuvastatin 5 MG tablet
10 mg PO HS
Morphine Pump
0 mg INJ Q1H
Rx Instructions:
Patient on q1h morphine 0.24 mg an hour with bupivacaine 0.25 mg an hour. Last filled on 09/28/25. Gets filled every 6 weeks
then morphine bolus 0.5 mg every 6 hours with bupivacaine 0.25 mg every 6 hours
Patient got bolus of 0.5 mg morphine/bupivacaine 0.25 mg bolus at 8 PM by son on 09/28/2025 in ER
isosorbide mononitrate 60 MG tablet extended release 24 hr
60 mg PO DAILY
PreserVision AREDS-2 1 EACH capsule
1 cap PO BID
mesalamine [Lialda] 1.2 GM tablet,delayed release (DR/EC)
2.4 g PO DAILY
alendronate 70 mg Tablet
70 mg PO SA
Rx Instructions:
SATURDAYS
pantoprazole 40 MG tablet,delayed release (DR/EC)
20 mg PO DAILY
acetaminophen 325 mg Tablet
650 mg PO Q6HPRN PRN (Reason: mild pain/fever)
carvedilol 6.25 mg Tablet
3.125 mg PO BID Qty: 0 0RF
polyethylene glycol 3350 [HealthyLax] 17 gram Powder In Packet
17 g PO DAILY Qty: 0 0RF
tamsulosin 0.4 mg Capsule
0.4 mg PO DAILY Qty: 0 0RF
sennosides [senna] 8.6 mg Tablet
17.2 mg PO DAILY
melatonin 3 mg Tablet
6 mg PO HSPRN PRN (Reason: sleep)
levothyroxine [Synthroid] 75 mcg Tablet
75 mcg PO DAILY AT 0700
famotidine [Pepcid] 20 mg Tablet
10 mg PO DAILY
magnesium hydroxide [Milk of Magnesia] 400 mg/5 mL Suspension
2,400 mg PO [id number] PRN (Reason: constipation)
amlodipine [Norvasc] 10 mg Tablet
10 mg PO DAILY
bisacodyl [Dulcolax (bisacodyl)] 10 mg Suppository
10 mg FL Q8HPRN PRN (Reason: if no bm aftr mom)
calcium carbonate [Tums] 200 mg calcium (500 mg) Tablet,Chewable
200 mg PO Q6HPRN PRN (Reason: gerd)
furosemide [Lasix] 20 mg Tablet
40 mg PO DAILY
darifenacin 15 mg Tablet Extended Release 24 Hr
15 mg PO DAILY
cholecalciferol (vitamin D3) [Vitamin D3] 25 mcg (1,000 unit) Tablet
25 mcg PO DAILY
Refresh Optive 0.5-0.9 % Drops
1 drp BOTH EYES BID
camphor-menthol 0.2-3.5 % Gel
1 applic TOPICAL TID
Rx Instructions:
right shoudler
AZO Complete Feminine Balance 5 billion cell Capsule
2 cap PO DAILY
Gemtesa 75 mg Tablet
75 mg PO DAILY
prednisone 10 mg tablet
10 mg PO DAILY
Rx Instructions:
Patient has 2 days left was given for pain right shoulder
camphor-menthol
0.2 % topical TID
Rx Instructions:
right shoulder
Discontinued
pidptyncahb-nvnoifysw-lhm C-Mn 1 TAB tablet
1 tab PO BID
ascorbic acid (vitamin C) [Vitamin C] 500 MG tablet
500 mg PO DAILY
B-complex with vitamin C 1 CAPLET tablet
1 cap PO DAILY
Discharge Orders:
Discharge Patient (As Directed); Ordered 10/03/25
Ordered By: Margarita Morris
Discharge Date and Time
Discharge Date/Time: 10/03/25 11:45
Print Language: BANGLADESHI
== END 2025-10-03 11:45 | DRG 483 ==
LOC: 2 SOUTH 21:33
PROVIDERS: Clinical Nurse Specialist Family Health; Nurse Practitioner Family; Physician Assistant; ADMITTING PHYSICIAN Hospitalist; ATTENDING PHYSICIAN Internal Medicine; CONSULT PHYSICIAN Orthopaedic Surgery Hand Surgery; EMERGENCY PHYSICIAN Emergency Medicine; FAMILY PHYSICIAN Family Medicine
PROC: 30233N1 Transfusion of Nonautologous Red Blood Cells into Peripheral Vein, Percutaneous Approach (ICD-10-PCS; 2025-09-29)
PROC: 0RRJ0J6 Replacement of Right Shoulder Joint with Synthetic Substitute, Humeral Surface, Open Approach (ICD-10-PCS; 2025-09-29)
DX: S42.131A Displaced fracture of coracoid process, right shoulder, initial encounter for closed fracture (principal); I13.0 Hypertensive heart and chronic kidney disease with heart failure and stage 1 through stage 4 chronic kidney disease, or unspecified chronic kidney disease; I50.32 Chronic diastolic (congestive) heart failure; N18.4 Chronic kidney disease, stage 4 (severe); N17.9 Acute kidney failure, unspecified; E87.1 Hypo-osmolality and hyponatremia; F11.20 Opioid dependence, uncomplicated; D62 Acute posthemorrhagic anemia; M24.411 Recurrent dislocation, right shoulder; I25.10 Atherosclerotic heart disease of native coronary artery without angina pectoris; Z66 Do not resuscitate; E03.9 Hypothyroidism, unspecified; F32.A Depression, unspecified; D63.1 Anemia in chronic kidney disease; G89.4 Chronic pain syndrome; R13.10 Dysphagia, unspecified; K21.9 Gastro-esophageal reflux disease without esophagitis; K44.9 Diaphragmatic hernia without obstruction or gangrene; K58.9 Irritable bowel syndrome, unspecified; G47.00 Insomnia, unspecified; M81.0 Age-related osteoporosis without current pathological fracture; I35.0 Nonrheumatic aortic (valve) stenosis; N32.81 Overactive bladder; E78.00 Pure hypercholesterolemia, unspecified; M19.011 Primary osteoarthritis, right shoulder; M48.00 Spinal stenosis, site unspecified; Z79.52 Long term (current) use of systemic steroids; Z79.82 Long term (current) use of aspirin; Z79.83 Long term (current) use of bisphosphonates; Z79.899 Other long term (current) drug therapy; Z87.440 Personal history of urinary (tract) infections; Z95.1 Presence of aortocoronary bypass graft; Z95.3 Presence of xenogenic heart valve
CPT/HCPCS: 23650; 73020; 73030; 73200; 80048; 80053; 85025; 85027; 86850; 86900; 86901; 86920; 87070; 97110; 97163; 97167; 97530; 99152; 99285; C1713; C1776; P9016